=== PATIENT | male | born 1950 | race Caucasian/White ===

== ENCOUNTER → 2017-08-17 08:40 | Outpatient (CLI) | payer MEDICARE, SELFPAY ==
[2017-08-17 11:01] LABS: ALB/GLOB Ratio 0.9 RATIO (0.9-2.4); AST(SGOT) 13 U/L (15-37); Alanine Aminotransfer ALT/SGPT 19 U/L (16-61); Albumin, Serum 3.7 g/dL (3.2-5.0); Alkaline Phosphatase 81 U/L (45-117); Anion Gap 8 (5-15); BUN 25 mg/dL (7-18); BUN/Creat Ratio 20.8 RATIO (10-20); Chloride 108 mmol/L (98-107); Cholesterol 172 mg/dL (200); EST Glomerular Filtration Rate 64 mL/min (>60); Est Glom Filt Rate - Afr Amer 77 mL/min (>60); Globulin 4.1 g/dL (2.2-4.2); Glucose 146 mg/dL (74-106); High Density Lipoprotein 47 mg/dL; Potassium 4.7 mmol/L (3.5-5.1); Protein, Total 7.8 g/dL (6.4-8.2); Sodium Level 139 mmol/L (136-145); Triglycerides 164 mg/dL; Very Low Density Lipoprotein 33 mg/dL (5-40)
== END ==
PROVIDERS: Family Provider Family Medicine; PCP Family Medicine; Visit Provider Family Medicine
DX: E11.9 Type 2 diabetes mellitus without complications (principal)
CPT/HCPCS: 36415; 80053; 80061

== ENCOUNTER → 2018-02-15 09:21 | Outpatient (CLI) | payer MEDICARE, SELFPAY ==
[2018-02-15 10:51] LABS: ALB/GLOB Ratio 0.9 RATIO (0.9-2.4); AST(SGOT) 19 U/L (15-37); Alanine Aminotransfer ALT/SGPT 22 U/L (16-61); Albumin, Serum 3.4 g/dL (3.2-5.0); Alkaline Phosphatase 77 U/L (45-117); Anion Gap 8 (5-15); BUN 20 mg/dL (7-18); BUN/Creat Ratio 16.9 RATIO (10-20); Calcium,Total 8.6 mg/dL (8.5-10.1); Chloride 107 mmol/L (98-107); Cholesterol 164 mg/dL (200); Creatinine, Serum 1.18 mg/dL (0.70-1.30); EST Glomerular Filtration Rate 65 mL/min (>60); Est Glom Filt Rate - Afr Amer 79 mL/min (>60); Globulin 3.9 g/dL (2.2-4.2); Glucose 154 mg/dL (74-106); High Density Lipoprotein 46 mg/dL; Potassium 4.2 mmol/L (3.5-5.1); Protein, Total 7.3 g/dL (6.4-8.2); Sodium Level 138 mmol/L (136-145); Triglycerides 184 mg/dL; Very Low Density Lipoprotein 37 mg/dL (5-40)
== END ==
PROVIDERS: Family Provider Family Medicine; PCP Family Medicine; Visit Provider Family Medicine
DX: E11.9 Type 2 diabetes mellitus without complications (principal)
CPT/HCPCS: 36415; 80053; 80061; 84403; 84443

== ENCOUNTER → 2018-06-05 12:05 | Outpatient (CLI) | payer MEDICARE, SELFPAY ==
--- NOTE | 2018-06-05 12:09 | RAD_ITS ---
STUDY: X-RAY - PARANASAL SINUSES REASON FOR EXAM: Male, 68 years old. Headache TECHNIQUE: 3 view(s) of the paranasal sinuses were obtained. COMPARISON: None. FINDINGS: Normal visualized frontal, maxillary, ethmoidal and sphenoid sinuses. Normal visualized facial bones. The soft tissue structures are unremarkable. RAD/Sinuses min 3 Views IMPRESSION: Normal x-rays of the paranasal sinuses. Electronically Signed: Stas Licea MD at 7:41 EST Tel , Service support ,
== END ==
PROVIDERS: Family Provider Family Medicine; PCP Family Medicine; Referring Provider Family Medicine; Visit Provider Family Medicine
DX: R51 Headache (principal)
CPT/HCPCS: 70220

== ENCOUNTER → 2018-08-11 08:52 | Outpatient (CLI) | payer MEDICARE, SELFPAY ==
[2018-08-11 10:46] LABS: ALB/GLOB Ratio 0.9 RATIO (0.9-2.4); AST(SGOT) 20 U/L (15-37); Alanine Aminotransfer ALT/SGPT 19 U/L (16-61); Albumin, Serum 3.5 g/dL (3.2-5.0); Alkaline Phosphatase 110 U/L (45-117); Anion Gap 8 (5-15); BUN 29 mg/dL (7-18); BUN/Creat Ratio 23.6 RATIO (10-20); Chloride 112 mmol/L (98-107); Cholesterol 168 mg/dL (200); Creatinine, Serum 1.23 mg/dL (0.70-1.30); EST Glomerular Filtration Rate 62 mL/min (>60); Est Glom Filt Rate - Afr Amer 75 mL/min (>60); Globulin 4.1 g/dL (2.2-4.2); Glucose 189 mg/dL (74-106); High Density Lipoprotein 45 mg/dL; PSA,Total - Annual Screen 1.76 ng/mL (0.00-4.00); Potassium 5.1 mmol/L (3.5-5.1); Protein, Total 7.6 g/dL (6.4-8.2); Sodium Level 138 mmol/L (136-145); Thyroid Stim Hormone (TSH) 2.35 uIU/mL (0.358-3.74); Triglycerides 184 mg/dL; Very Low Density Lipoprotein 37 mg/dL (5-40)
== END ==
PROVIDERS: Family Provider Family Medicine; PCP Family Medicine; Referring Provider Family Medicine; Visit Provider Family Medicine
DX: E11.9 Type 2 diabetes mellitus without complications (principal); Z12.5 Encounter for screening for malignant neoplasm of prostate
CPT/HCPCS: 36415; 80053; 80061; 84153; 84403; 84443; G0103

== ENCOUNTER → 2019-09-12 08:39 | Outpatient (CLI) | payer MEDICARE, SELFPAY ==
[2019-09-12 10:45] LABS: ALB/GLOB Ratio 0.9 RATIO (0.9-2.4); AST(SGOT) 12 U/L (15-37); Alanine Aminotransfer ALT/SGPT 27 U/L (16-61); Albumin, Serum 3.5 g/dL (3.2-5.0); Alkaline Phosphatase 85 U/L (45-117); Anion Gap 7 (5-15); BUN 30 mg/dL (7-18); BUN/Creat Ratio 25.2 RATIO (10-20); Calcium,Total 9.3 mg/dL (8.5-10.1); Chloride 106 mmol/L (98-107); Cholesterol 182 mg/dL (200); Creatinine, Serum 1.19 mg/dL (0.70-1.30); EST Glomerular Filtration Rate 64 mL/min (>60); Est Glom Filt Rate - Afr Amer 78 mL/min (>60); Glucose 95 mg/dL (74-106); High Density Lipoprotein 63 mg/dL; PSA,Total - Annual Screen 1.57 ng/mL (0.00-4.00); Potassium 3.8 mmol/L (3.5-5.1); Protein, Total 7.5 g/dL (6.4-8.2); Sodium Level 138 mmol/L (136-145); Thyroid Stim Hormone (TSH) 1.84 uIU/mL (0.358-3.74); Triglycerides 194 mg/dL; Uric Acid 6.5 mg/dL (3.5-7.2); Very Low Density Lipoprotein 39 mg/dL (5-40)
== END ==
PROVIDERS: PCP Family Medicine; Referring Provider Family Medicine; Visit Provider Family Medicine
DX: E11.9 Type 2 diabetes mellitus without complications (principal); M10.9 Gout, unspecified; Z12.5 Encounter for screening for malignant neoplasm of prostate
CPT/HCPCS: 36415; 80053; 80061; 84153; 84403; 84443; 84550; G0103

== ENCOUNTER → 2020-03-09 09:21 | Outpatient (CLI) | payer MEDICARE, SELFPAY ==
[2020-03-09 13:16] LABS: ALB/GLOB Ratio 0.8 RATIO (0.9-2.4); AST(SGOT) 17 U/L (15-37); Alanine Aminotransfer ALT/SGPT 24 U/L (16-61); Albumin, Serum 3.4 g/dL (3.2-5.0); Alkaline Phosphatase 85 U/L (45-117); Anion Gap 7 (5-15); BUN 22 mg/dL (7-18); BUN/Creat Ratio 18.2 RATIO (10-20); Chloride 109 mmol/L (98-107); Creatinine, Serum 1.21 mg/dL (0.70-1.30); EST Glomerular Filtration Rate 63 mL/min (>60); Est Glom Filt Rate - Afr Amer 76 mL/min (>60); Glucose 116 mg/dL (74-106); Potassium 4.5 mmol/L (3.5-5.1); Protein, Total 7.4 g/dL (6.4-8.2); Sodium Level 140 mmol/L (136-145)
== END ==
PROVIDERS: PCP Family Medicine; Visit Provider Family Medicine
DX: E11.9 Type 2 diabetes mellitus without complications (principal)
CPT/HCPCS: 36415; 80053

== ENCOUNTER → 2020-10-28 09:08 | Outpatient (CLI) | payer MEDICARE, SELFPAY ==
--- NOTE | 2020-10-28 09:10 | RAD_ITS ---
STUDY: X-RAY - LUMBAR SPINE REASON FOR EXAM: Male, 70 years old. BACK PAIN TECHNIQUE: 5 view(s) of the lumbar spine were obtained including oblique views. COMPARISON: None FINDINGS: Normal lumbar lordosis. There is no substantial scoliosis. There is a normal alignment of the vertebrae. There is multilevel endplate spondylosis of the lumbar vertebrae. There is multi-level degenerative disc disease with multi-level disc space narrowing. Facet joint osteoarthritis and hypertrophy. Possible spinal stenosis at the L5-S1 level. There is atherosclerotic calcification of the abdominal aorta without a demonstrated aneurysm. RAD/L/S Spine Min 4 Views IMPRESSION: Degenerative changes of the spine, as detailed above. Facet joint osteoarthritis and hypertrophy with the findings suggestive of spinal stenosis at the L5-S1 level. Electronically Signed: Sohan Arteaga MD at 13:38 EDT , Service support ,
[2020-10-28 10:55] LABS: Vitamin B12 433 pg/mL (211-911)
[2020-10-28 11:05] LABS: ALB/GLOB Ratio 1.1 RATIO (0.9-2.4); AST(SGOT) 17 U/L (15-37); Alanine Aminotransfer ALT/SGPT 23 U/L (16-61); Albumin, Serum 3.9 g/dL (3.2-5.0); Alkaline Phosphatase 93 U/L (45-117); Anion Gap 9 (5-15); BUN 19 mg/dL (7-18); BUN/Creat Ratio 14.4 RATIO (10-20); Chloride 107 mmol/L (98-107); Cholesterol 162 mg/dL (200); Creatinine, Serum 1.32 mg/dL (0.70-1.30); EST Glomerular Filtration Rate 57 mL/min (>60); Est Glom Filt Rate - Afr Amer 69 mL/min (>60); Globulin 3.7 g/dL (2.2-4.2); Glucose 90 mg/dL (74-106); High Density Lipoprotein 50 mg/dL; Potassium 4.7 mmol/L (3.5-5.1); Protein, Total 7.6 g/dL (6.4-8.2); Sodium Level 139 mmol/L (136-145); Thyroid Stim Hormone (TSH) 2.42 uIU/mL (0.358-3.74); Triglycerides 178 mg/dL; Very Low Density Lipoprotein 36 mg/dL (5-40)
== END ==
PROVIDERS: PCP Family Medicine; Referring Provider Family Medicine; Visit Provider Family Medicine
DX: M54.5 Low back pain (principal); E11.9 Type 2 diabetes mellitus without complications
CPT/HCPCS: 36415; 72110; 80053; 80061; 82607; 84443

== ENCOUNTER 2020-12-02 08:30 | Outpatient (RCR) | payer MEDICARE, SELFPAY ==
--- NOTE | 2020-11-05 18:22 | HP.PTEVAL_ITS ---
Patient's Visit Information MILKA FARR is a 70 year old M referred to Physical Therapy by Dr. Farhat An MD with a diagnosis of SPINAL STENOSIS. Date of Evaluation: 11/05/20 Physical Therapist: Nehemias Kaur PT, Cert MDT, OCS - Visit Plan Frequency: 2x /Week Duration: 4 Weeks Plan: PT INTERVETIONS LUMBAR FLEXION ,DLS ,POSTURAL EX'S AND MODALTIES NEED - Subjective This 70 y/o male presents to physical therapy with spinal stenosis. Patient has had LBP for ~year. Symptoms initially would be intermittent . Pain located right side occasionally right knee. Seen DR X-rays showed spinal stenosis . Patient seen chiropractor which didn't help. No meds. Aggravating standing ,walking < 5mins .Alleviating sitting and rest. Denies paresthesia/ tingling. Bowel/bladder-. Coughing/sneezing-.Patient sleeping okay at night . No abnormal night pain.No h/o of trauma. Patient symptoms affects QOL and ADL'S. 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 SOCAIL: - Pain Right Back Pain Intensity (Out of 10): 6 Pain Intensity Range: 10 - Objective POSTURE: mild forward posture,, right leg shorter < 1/4 uses small lift. GAIT: reciprocal pattern mild forward posture slow alesha. SYYMTRIES : right leg slightly shorter. PALPATION: unremarkable. NEURO: denies paresthesia/tingling ,reflexes L3-4,L4-5,L5-S1 1/3. MMT: quads/hams 4/5 ,hip flexion 4-5/,ankle 4/5. FLEXABLITY: hams mild tight - Special Tests L/S Slump test left side: Negative L/S Slump test right side: Negative L/S Left Straight Leg Raise: Negative L/S Right Straight Leg Raise: Negative Lumbar Standing: Flexion - Mechanical Response: No effect Lumbar Standing: Flexion - Symptoms During Testing: Produces Lumbar Standing: Flexion - Symptoms After Testing: No effect Lumbar Standing: Extension - Mechanical Response: No effect Lumbar Standing: Extension - Symptoms During Testing: Increases Lumbar Standing: Extension - Symptoms After Testing: No worse Lumbar Standing: Right Side Glides - Mechanical Response: No effect Lumbar Standing: Right Side [place] - Symptoms During Testing: No effect Lumbar Standing: Left Side [place] - Mechanical Response: No effect Lumbar Standing: Left Side [place] - Symptoms During Testing: No effect Lumbar Standing: Left Side [place] - Symptoms After Testing: No effect Lumbar Lying: Flexion - Mechanical Response: No effect Lumbar Lying: Flexion - Symptoms During Testing: No effect Lumbar Lying: Flexion - Symptoms After Testing: No effect Lumbar Lying: Extension - Mechanical Response: No effect Lumbar Lying: Extension - Symptoms During Testing: Increases Lumbar Lying: Extension - Symptoms After Testing: No worse - Goals Goal 1:: I with HEP Goal Time Frame: 4-6 Weeks Goal 2:: Improve posture/body mchanics for ADL'S Goal Time Frame: 4-6 Weeks Goal 3:: Patient to reduce RIGHT LBP by 50% or > to improve function with walking/standing. Goal Time Frame: 4-6 Weeks Goal 4:: Patient to improve lumbar ROM FOR function of recovery . Goal Time Frame: 4-6 Weeks Goal 5:: Patient to improve lumbar BACK score by 5 points or > to improve function Goal Time Frame: 4-6 Weeks - Rehabilitation Potential Physical Therapy Diagnosis: This patient has right lumbar pain worse with standing/walking < less than 5 mins ,better with sitting affects ADLS' and housework tasks /farming thus benifit from skilled PT Rehabilitation Potential: Good - Anticipated Interventions Patient/Client Instruction: Educate patient on: Condition, Plan of Care For the Purpose of:: To decrease pain, To decrease swelling/inflammation, To improve muscle performance and motor function, To improve ability to perform ADL 's, To increase tolerance to activity/condition/position, To improve performance and independence with ADL's, To improve ability of physical actions for home/community/work/leisure, To improve health of tissue, To decrease soft tissue restriction, To increase flexibility/ROM, To reduce risk of recurrence, To improve ability to perform tasks related to life management Therapeutic Exercise to Include: Strength training, Body mechanics, Postural training, Flexibilty training, Dynamic Lumbar Stabilization Comment: BLE For the Purpose of:: To decrease pain, To increase ROM, To improve muscle performance and motor function, To improve ability to perform ADL's, To increase tolerance to activity/condition/position, To improve ability of physical actions for home/community/work/leisure, To improve health of tissue, To decrease soft tissue restriction, To increase flexibility/ROM, To reduce risk of recurrence, To improve ability to perform tasks related to life management TENS: Yes IF ES: Yes Other electric stimulation: Yes Cryotherapy (ice pack, ice massage): Yes Ultrasound (thermal/non thermal): Yes For the Purpose of:: To decrease pain, To decrease swelling/inflammation, To improve nutrient delivery to tissue, To increase oxygenation perfusion, To improve health of tissue, To decrease soft tissue restriction Thank you for the opportunity to evaluate your patient. For Medicare and Medicare HMO plans, please review the plan of care and approve it. It will need to be FAXED BACK to us at [phone] for Medicare purposes. For Medicare only, by signing this I certify the plan of care. Please let me know if there are questions or concerns regarding this plan of care. Physician Signature: Date:
--- NOTE | 2020-12-02 08:44 | HP.PTDCSUM ---
It has been my pleasure to treat MILKA FARR referred by Dr. Farhat An MD, with the diagnosis of SPINAL STENOSIS for a total of 9 visit(s). Discharge Date: 12/02/20 Please see the following information for a summary of their discharge status. Subjective: Doing well ..ready for d/c Right Back Pain Intensity (Out of 10): 0 % Improvement: 100 Objective/Function: POSTURE: mild forward posture. GAIT: reciprocal pattern. PALPATION: unremarkable. MMT: quads/hams 4/5,ankle 5/5. LUMBAR ROM: FLEXION MIN LOSS ,EXTENSION MIN/MOD LOSS Goal 1:: I with HEP Goal Progress: Goal Met Goal 2:: Improve posture/body mchanics for ADL'S Goal Progress: Goal Met Goal 3:: Patient to reduce RIGHT LBP by 50% or > to improve function with walking/standing. Goal Progress: Goal Met Goal 4:: Patient to improve lumbar ROM FOR function of recovery . Goal Progress: Goal Met Goal 5:: Patient to improve lumbar BACK score by 5 points or > to improve function Goal Progress: Goal Met Plan: d/c to [facility] If there are questions or concerns regarding this patient's physical therapy, please feel free to call me at [phone]. Thank you for the referral of this patient. Sincerely, Nehemias Kaur PT, Cert MDT, OCS Balance/Gait/Functional tests - Balance/Special Test Scores Oswestry Low Back Score: 0
== END 2020-12-02 19:00 | disposition home or self-care (01) ==
LOC: PT 08:30
PROVIDERS: PCP Family Medicine; Referring Provider Family Medicine; Visit Provider Family Medicine
DX: M48.00 Spinal stenosis, site unspecified (principal)
CPT/HCPCS: 97110; 97162

== ENCOUNTER 2021-04-29 10:41 | Outpatient (CLI) | payer MEDICARE, SELFPAY ==
[2021-04-29 12:19] LABS: Anion Gap 9 (5-15); BUN 21 mg/dL (7-18); BUN/Creat Ratio 18.8 RATIO (10-20); Calcium,Total 8.6 mg/dL (8.5-10.1); Chloride 110 mmol/L (98-107); Cholesterol 142 mg/dL (200); Creatinine, Serum 1.12 mg/dL (0.70-1.30); EST Glomerular Filtration Rate 69 mL/min (>60); Est Glom Filt Rate - Afr Amer 83 mL/min (>60); Glucose 62 mg/dL (74-106); High Density Lipoprotein 47 mg/dL; PSA,Total - Annual Screen 2.37 ng/mL (0.00-4.00); Potassium 4.5 mmol/L (3.5-5.1); Sodium Level 142 mmol/L (136-145); Triglycerides 171 mg/dL; Very Low Density Lipoprotein 34 mg/dL (5-40)
== END 2021-04-29 23:59 | disposition short-term general hospital (02) ==
LOC: MFPLAB 10:43
PROVIDERS: PCP Family Medicine; Referring Provider Family Medicine; Visit Provider Family Medicine
DX: E11.9 Type 2 diabetes mellitus without complications (principal); Z12.5 Encounter for screening for malignant neoplasm of prostate
CPT/HCPCS: 36415; 80048; 80061; 84153; G0103

== ENCOUNTER → 2021-10-26 | Outpatient (CLI) | payer MEDICARE, SELFPAY ==
[2021-10-26 10:39] LABS: ALB/GLOB Ratio 0.9 RATIO (0.9-2.4); AST(SGOT) 20 U/L (15-37); Alanine Aminotransfer ALT/SGPT 21 U/L (16-61); Albumin, Serum 3.6 g/dL (3.2-5.0); Alkaline Phosphatase 82 U/L (45-117); Anion Gap 6 (5-15); BUN 25 mg/dL (7-18); BUN/Creat Ratio 18.7 RATIO (10-20); Calcium,Total 9.2 mg/dL (8.5-10.1); Chloride 111 mmol/L (98-107); Cholesterol 144 mg/dL (200); Creatinine, Serum 1.34 mg/dL (0.70-1.30); EST Glomerular Filtration Rate 56 mL/min (>60); Est Glom Filt Rate - Afr Amer 67 mL/min (>60); Globulin 3.8 g/dL (2.2-4.2); Glucose 70 mg/dL (74-106); High Density Lipoprotein 46 mg/dL; Potassium 5.1 mmol/L (3.5-5.1); Protein, Total 7.4 g/dL (6.4-8.2); Sodium Level 139 mmol/L (136-145); Triglycerides 97 mg/dL; Very Low Density Lipoprotein 19 mg/dL (5-40); Vitamin B12 404 pg/mL (211-911)
[2021-10-26 11:38] LABS: Thyroid Stim Hormone (TSH) 2.36 uIU/mL (0.358-3.74)
== END | disposition home or self-care (01) ==
LOC: MFPLAB 09:31
PROVIDERS: PCP Family Medicine; Visit Provider Family Medicine
DX: E11.9 Type 2 diabetes mellitus without complications (principal)
CPT/HCPCS: 36415; 80053; 80061; 82607; 84443

== ENCOUNTER → 2022-04-27 | Outpatient (CLI) | payer MEDICARE, SELFPAY ==
[2022-04-27 10:27] LABS: AST(SGOT) 15 U/L (15-37); Alanine Aminotransfer ALT/SGPT 22 U/L (16-61); Albumin, Serum 3.5 g/dL (3.2-5.0); Alkaline Phosphatase 84 U/L (45-117); Anion Gap 6 (5-15); BUN 23 mg/dL (7-18); Calcium,Total 9.6 mg/dL (8.5-10.1); Chloride 109 mmol/L (98-107); Cholesterol 176 mg/dL (200); Creatinine, Serum 1.21 mg/dL (0.70-1.30); EST Glomerular Filtration Rate 63 mL/min (>60); Est Glom Filt Rate - Afr Amer 76 mL/min (>60); Globulin 3.6 g/dL (2.2-4.2); Glucose 110 mg/dL (74-106); High Density Lipoprotein 51 mg/dL; Potassium 4.5 mmol/L (3.5-5.1); Protein, Total 7.1 g/dL (6.4-8.2); Sodium Level 139 mmol/L (136-145); Triglycerides 134 mg/dL; Very Low Density Lipoprotein 27 mg/dL (5-40)
== END | disposition home or self-care (01) ==
LOC: MFPLAB 08:32
PROVIDERS: PCP Family Medicine; Visit Provider Family Medicine
DX: E11.9 Type 2 diabetes mellitus without complications (principal)
CPT/HCPCS: 36415; 80053; 80061

== ENCOUNTER → 2022-11-09 | Outpatient (CLI) | payer MEDICARE, SELFPAY ==
[2022-11-09 12:30] LABS: Hematocrit 44.9 % (40-54); Hemoglobin 14.8 g/dL (13.0-16.5); Mean Corpuscular Hgb 29.9 pg (27.0-32.0); Mean Corpuscular Volume 90.7 fL (80-94); Mean Platelet Vol. 11.5 fl (6.2-12.0); Platelet Count 198 K/mm3 (150-450); RBC Distribution Width CV 13.1 % (11.6-14.6); RBC Distribution Width SD 42.4 fl (35.1-43.9); Red Blood Count 4.95 M/mm3 (4.6-6.2); White Blood Count 6.6 K/mm3 (4.4-11.0)
[2022-11-09 13:00] LABS: ALB/GLOB Ratio 0.9 RATIO (0.9-2.4); AST(SGOT) 19 U/L (15-37); Alanine Aminotransfer ALT/SGPT 25 U/L (16-61); Albumin, Serum 3.5 g/dL (3.2-5.0); Alkaline Phosphatase 105 U/L (45-117); Anion Gap 10 (5-15); BUN 32 mg/dL (7-18); BUN/Creat Ratio 19.6 RATIO (10-20); Calcium,Total 9.2 mg/dL (8.5-10.1); Chloride 108 mmol/L (98-107); Cholesterol 142 mg/dL (200); Creatinine, Serum 1.63 mg/dL (0.70-1.30); EST Glomerular Filtration Rate 44 mL/min (>60); Est Glom Filt Rate - Afr Amer 54 mL/min (>60); Glucose 108 mg/dL (74-106); High Density Lipoprotein 37 mg/dL; PSA,Total - Annual Screen 1.85 ng/mL (0.00-4.00); Potassium 4.7 mmol/L (3.5-5.1); Protein, Total 7.5 g/dL (6.4-8.2); Sodium Level 140 mmol/L (136-145); Triglycerides 202 mg/dL; Very Low Density Lipoprotein 40 mg/dL (5-40)
[2022-11-09 13:35] LABS: Hepatitis C Antibody Non-Reactive (Nonreactive); Vitamin B12 403 pg/mL (211-911)
== END | disposition home or self-care (01) ==
LOC: MFPLAB 09:36
PROVIDERS: PCP Family Medicine; Visit Provider Family Medicine
DX: E11.22 Type 2 diabetes mellitus with diabetic chronic kidney disease (principal); N40.0 Benign prostatic hyperplasia without lower urinary tract symptoms
CPT/HCPCS: 36415; 80053; 80061; 82607; 84153; 84403; 84443; 85027; 86803; G0103

== ENCOUNTER → 2023-02-21 | Outpatient (CLI) | payer MEDICARE, SELFPAY ==
[2023-02-21 10:52] LABS: Anion Gap 6 (5-15); BUN 32 mg/dL (7-18); BUN/Creat Ratio 21.6 RATIO (10-20); Calcium,Total 9.4 mg/dL (8.5-10.1); Chloride 108 mmol/L (98-107); Creatinine, Serum 1.48 mg/dL (0.70-1.30); EST Glomerular Filtration Rate 49 mL/min (>60); Est Glom Filt Rate - Afr Amer 60 mL/min (>60); Glucose 152 mg/dL (74-106); Potassium 4.4 mmol/L (3.5-5.1); Sodium Level 137 mmol/L (136-145)
== END | disposition home or self-care (01) ==
LOC: MFPLAB 08:26
PROVIDERS: PCP Family Medicine; Visit Provider Family Medicine
DX: E11.22 Type 2 diabetes mellitus with diabetic chronic kidney disease (principal)
CPT/HCPCS: 36415; 80048

== ENCOUNTER → 2023-08-10 | Outpatient (CLI) | payer MEDICARE, SELFPAY ==
[2023-08-10 12:52] LABS: ALB/GLOB Ratio 0.9 RATIO (0.9-2.4); AST(SGOT) 23 U/L (15-37); Alanine Aminotransfer ALT/SGPT 24 U/L (16-61); Albumin, Serum 3.7 g/dL (3.2-5.0); Alkaline Phosphatase 109 U/L (45-117); Anion Gap 5 (5-15); BUN 36 mg/dL (7-18); BUN/Creat Ratio 23.5 RATIO (10-20); Calcium,Total 9.3 mg/dL (8.5-10.1); Chloride 107 mmol/L (98-107); Cholesterol 146 mg/dL (200); Creatinine, Serum 1.53 mg/dL (0.70-1.30); EST Glomerular Filtration Rate 48 mL/min (>60); Est Glom Filt Rate - Afr Amer 58 mL/min (>60); Glucose 109 mg/dL (74-106); High Density Lipoprotein 43 mg/dL; PSA,Total - Annual Screen 2.48 ng/mL (0.00-4.00); Potassium 4.9 mmol/L (3.5-5.1); Protein, Total 7.7 g/dL (6.4-8.2); Sodium Level 135 mmol/L (136-145); Thyroid Stim Hormone (TSH) 1.11 uIU/mL (0.358-3.74); Triglycerides 136 mg/dL; Very Low Density Lipoprotein 27 mg/dL (5-40)
== END | disposition home or self-care (01) ==
LOC: MFPLAB 10:08
PROVIDERS: PCP Family Medicine; Visit Provider Family Medicine
DX: Z00.00 Encounter for general adult medical examination without abnormal findings (principal); E11.22 Type 2 diabetes mellitus with diabetic chronic kidney disease; Z12.5 Encounter for screening for malignant neoplasm of prostate
CPT/HCPCS: 36415; 80053; 80061; 84153; 84443; G0103

== ENCOUNTER → 2023-08-14 | Outpatient (CLI) | payer MEDICARE, SELFPAY ==
--- NOTE | 2023-08-14 | LES_PTH ---
PATIENT: MILKA FARR LOC: [facility]#:[id number] AGE/SX: 73/M ROOM: RE08/14/[address]: Dr. Mohan An MD : 1950 BED: DIS: 08/14/2023 SPEC #: [id number] RECD: 08/14/23 12:10 STATUS: WES BEATRIZ #: [id number] ERIC: 08/14/23 00:[address]: Mohan An DEPT: SURGICAL PATHOLOGY RECD BY: Milagros Nicole Tissues: A - Skin of face, NOS B - Skin of face, NOS Procedures: Surgery Specimen Level IV HEADER OPERATION: Lesion removal right gnosticism and right cheek PRE-OP DIAGNOSIS: Squamous cell carcinoma? TISSUE SUBMITTED: A- Right gnosticism lesion, B- Right cheek lesion MICROSCOPIC DIAGNOSIS A. Right gnosticism lesion, shave biopsy: Basal cell carcinoma with extensive ulceration and associated acute inflammation. See comment. B. Right cheek lesion, shave biopsy: Actinic keratosis with moderate atypia and veracious features. Solar elastosis. Negative for malignancy. See comment. / 08/15/2023 COMMENT A. The tumor is present at the deep margin of the specimen. MICROSCOPIC DESCRIPTION Slides are reviewed. GROSS DESCRIPTION A. Received in fixative is one container labeled with the patient's name and designated Right gnosticism. The specimen consists of a shave biopsy with lenz-white skin measuring 1.2 x 0.6 x 0.1cm. The specimen is inked, serially sectioned and submitted entirely in one cassette. B. Received in fixative is one container labeled with the patient's name and designated Right cheek. The specimen consists of a shave biopsy with lenz-white skin measuring 0.8 x 0.5 x 0.1cm. The specimen is inked, serially sectioned and submitted entirely in one cassette. / 08/14/2023 TC:0 [facility]:[id number]
== END | disposition home or self-care (01) ==
LOC: LABSPEC 12:39
PROVIDERS: PCP Family Medicine; Referring Provider Family Medicine; Visit Provider Family Medicine
DX: L98.9 Disorder of the skin and subcutaneous tissue, unspecified (principal)
CPT/HCPCS: 88305

== ENCOUNTER → 2023-11-07 | Outpatient (CLI) | payer MEDICARE, SELFPAY ==
[2023-11-07 12:29] LABS: Uric Acid 7.2 mg/dL (3.5-7.2)
== END | disposition home or self-care (01) ==
LOC: MFPLAB 10:55
PROVIDERS: PCP Family Medicine; Visit Provider Family Medicine
DX: M10.9 Gout, unspecified (principal)
CPT/HCPCS: 36415; 84550

== ENCOUNTER → 2024-02-05 | Outpatient (CLI) | payer MEDICARE, SELFPAY ==
[2024-02-05 13:41] LABS: ALB/GLOB Ratio 0.9 RATIO (0.9-2.4); AST(SGOT) 14 U/L (15-37); Alanine Aminotransfer ALT/SGPT 16 U/L (16-61); Albumin, Serum 3.6 g/dL (3.2-5.0); Alkaline Phosphatase 116 U/L (45-117); Anion Gap 9 (5-15); BUN 36 mg/dL (7-18); BUN/Creat Ratio 22.1 RATIO (10-20); Calcium,Total 9.1 mg/dL (8.5-10.1); Chloride 108 mmol/L (98-107); Cholesterol 152 mg/dL (200); Creatinine, Serum 1.63 mg/dL (0.70-1.30); EST Glomerular Filtration Rate 44 mL/min (>60); Est Glom Filt Rate - Afr Amer 53 mL/min (>60); Globulin 4.1 g/dL (2.2-4.2); Glucose 131 mg/dL (74-106); High Density Lipoprotein 47 mg/dL; Potassium 4.8 mmol/L (3.5-5.1); Protein, Total 7.7 g/dL (6.4-8.2); Sodium Level 138 mmol/L (136-145); Triglycerides 151 mg/dL; Very Low Density Lipoprotein 30 mg/dL (5-40)
== END | disposition home or self-care (01) ==
LOC: MFPLAB 10:31
PROVIDERS: PCP Family Medicine; Visit Provider Family Medicine
DX: Z12.5 Encounter for screening for malignant neoplasm of prostate (principal); E11.22 Type 2 diabetes mellitus with diabetic chronic kidney disease
CPT/HCPCS: 36415; 80053; 80061; 84443

== ENCOUNTER → 2024-02-23 | Outpatient (CLI) | payer MEDICARE, SELFPAY ==
[2024-02-23 13:28] LABS: Anion Gap 5 (5-15); BUN 38 mg/dL (7-18); BUN/Creat Ratio 25.5 RATIO (10-20); Calcium,Total 9.8 mg/dL (8.5-10.1); Chloride 110 mmol/L (98-107); Creatinine, Serum 1.49 mg/dL (0.70-1.30); EST Glomerular Filtration Rate 49 mL/min (>60); Est Glom Filt Rate - Afr Amer 59 mL/min (>60); Glucose 133 mg/dL (74-106); Potassium 4.9 mmol/L (3.5-5.1); Sodium Level 138 mmol/L (136-145)
== END | disposition home or self-care (01) ==
LOC: MTLAB 09:45
PROVIDERS: PCP Family Medicine; Referring Provider Family Medicine; Visit Provider Family Medicine
DX: E11.22 Type 2 diabetes mellitus with diabetic chronic kidney disease (principal)
CPT/HCPCS: 36415; 80048

== ENCOUNTER 2024-09-04 09:44 | Outpatient (CLI) | payer MEDICARE, SELFPAY ==
[2024-09-04 10:22] LABS: Hematocrit 45.2 % (40-54); Hemoglobin 15.2 g/dL (13.0-16.5); Mean Corp Hgb Conc 33.6 g/dL (32-36); Mean Corpuscular Hgb 30.2 pg (27.0-32.0); Mean Corpuscular Volume 89.7 fL (80-94); Platelet Count 207 K/mm3 (150-450); RBC Distribution Width CV 12.7 % (11.6-14.6); RBC Distribution Width SD 41.5 fl (35.1-43.9); Red Blood Count 5.04 M/mm3 (4.6-6.2); White Blood Count 7.9 K/mm3 (4.4-11.0)
[2024-09-04 11:05] LABS: PTHIN 59 pg/mL (11-61)
[2024-09-04 11:29] LABS: ALB/GLOB Ratio 1.3 RATIO (0.9-2.4); AST(SGOT) 22 U/L (<=37); Alanine Aminotransfer ALT/SGPT 11 U/L (<=46); Alkaline Phosphatase 104 U/L (40-129); Anion Gap 12 (5-15); BUN 32 mg/dL (4-19); BUN/Creat Ratio 23.3 RATIO (10-20); Calcium,Total 9.4 mg/dL (7.6-11.0); Carbon Dioxide 21.5 mmol/L (21.0-32.0); Chloride 107 mmol/L (98-108); Cholesterol 134 mg/dL (<=200); Creatinine, Serum 1.35 mg/dL (0.70-1.20); EST Glomerular Filtration Rate 55 (>60); Globulin 3.2 g/dL (2.2-4.2); Glucose 74 mg/dL (70-99); High Density Lipoprotein 48 mg/dL; Low Density Lipoprotein Calc. 69 mg/dL; PSA,Total - Annual Screen 1.89 ng/mL (0.02-4.00); Potassium 4.6 mmol/L (3.3-5.1); Protein, Total 7.2 g/dL (5.9-8.4); Sodium Level 141 mmol/L (133-145); Total Bilirubin 0.96 mg/dL (0.00-1.30); Triglycerides 87 mg/dL; Very Low Density Lipoprotein 17 mg/dL (5-40); Vitamin B12 326 pg/mL (180-914); Vitamin D,25 Hydroxy 29.2 ng/mL (30-100); cholesterol:hdl ratio screen 2.82
== END 2024-09-04 23:59 | disposition home or self-care (01) ==
LOC: MFPLAB 09:45
PROVIDERS: PCP Family Medicine; Referring Provider Family Medicine; Visit Provider Family Medicine
DX: E11.22 Type 2 diabetes mellitus with diabetic chronic kidney disease (principal); N18.9 Chronic kidney disease, unspecified; Z12.5 Encounter for screening for malignant neoplasm of prostate
CPT/HCPCS: 36415; 80053; 80061; 82306; 82607; 83970; 84153; 84403; 84443; 85027; G0103

== ENCOUNTER 2025-03-05 09:07 | Outpatient (CLI) | payer MEDICARE, SELFPAY ==
--- OUTSIDE RECORDS SUMMARY | 2025-03-05 10:48 | XMS RPT_ITS | CCD ---
Author Organization [facility] Care Team Providers Care Extrusion Die Coordinator Name Role Phone Nataliya ESCOBAR, Dr. Preston Primary Care Provider Nataliya ESCOBAR, Dr. Preston Attending Provider Dr. Mohan An MD Referring Provider 1( [phone] Mohan An Attending Unavailable Mohan An Referring Unavailable Mohan An Primary Care Unavailable Mohan An Attending Unavailable Mohan An Primary Care Unavailable Mohan An Attending Unavailable Mohan An Referring Unavailable Mohan An Primary Care Unavailable Mohan An Primary Care Unavailable Mohan An Attending Unavailable Problems Active Problems Problem Classification Problem Date Documented Da te Episodic/Chronic Diabetes mellitus with complications (1 source) Type 2 diabetes mellitus with diabetic chronic kidney disease; Translations: [Type 2 diabetes mellitus with diabetic chronic kidney disease] Onset: 09-20-2024 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) Gout, unspecified; Translations: [Gout, unspecified] Onset: 11-23-2023 Chronic Past or Other Problems Problem Classification Problem Date Documented Da te Episodic/Chronic Other screening for suspected conditions (not mental disorders or infectious disease) (1 source) Encounter for screening for malignant neoplasm of prostate; Translations: [Encounter for screening for malignant neoplasm of prostate] Onset: 02-28-2024 Episodic Results Test Name Value Interpretation Reference Range Facility Anion gap in Serum or Plasma Ordered By: Mohan An on 09-04-2024 Anion gap [Moles/Vol] 12 mmol/L - [facility] BUN/creatinine ratioOrdered By: Mohan An on 09-04-2024 Urea nitrogen/Creatinine [Mass ratio] 23.3 mg/mg High 10- [facility] Bilirubin, totalOrdered By: Mohan An on 09-04-2024 Bilirubin [Mass/Vol] 0.96 mg/dL 0.00-1.30 [facility] CBC-Complete Blood Cnt No Di ffon 09-04-2024 Erythrocyte distribution width (RBC) [Ratio] 12.7 % Normal 11.6-14.6 [facility] Comment on above: Order Comment: Order Date: 05/07/24 Order Info: [id number] - CBC Performed By: #### L 501.9520, L100.0500, L501.9910, L500.4050, L509.1000, L500.4100 #### [facility] [address] [place], [place], [id number] (125) Hematocrit (Bld) [Volume fraction] 45.2 % Normal 40-54 [facility] Comment on above: Order Comment: Order Date: 05/07/24 Order Info: [id number] - CBC Performed By: #### L 501.9520, L100.0500, L501.9910, L500.4050, L509.1000, L500.4100 #### [facility] [address] [place], [place], [id number] Hemoglobin (Bld) [Mass/Vol] 15.2 g/dL Normal 13.0-16.5 [facility] Comment on above: Order Comment: Order Date: 05/07/24 Order Info: [id number] - CBC Performed By: #### L 501.9520, L100.0500, L501.9910, L500.4050, L509.1000, L500.4100 #### [facility] [address] [place], [address] MCH (RBC) [Entitic mass] 30.2 pg Normal 27.0-32.0 [facility] Comment on above: Order Comment: Order Date: 05/07/24 Order Info: [id number] - CBC Performed By: #### L 501.9520, L100.0500, L501.9910, L500.4050, L509.1000, L500.4100 #### [facility] [address] [place], [address] MCHC (RBC) [Mass/Vol] 33.6 g/dL Normal 32-36 [facility] Comment on above: Order Comment: Order Date: 05/07/24 Order Info: [id number] - CBC Performed By: #### L 501.9520, L100.0500, L501.9910, L500.4050, L509.1000, L500.4100 #### [facility] [address] [place], [address] MCV (RBC) [Entitic vol] 89.7 fL Normal 80-94 [facility] Comment on above: Order Comment: Order Date: 05/07/24 Order Info: [id number] - CBC Performed By: #### L 501.9520, L100.0500, L501.9910, L500.4050, L509.1000, L500.4100 #### [facility] [address] [place], [address] Platelet mean volume (Bld) [Entitic vol] 11.0 fL Normal 6.2-12.0 [facility] Comment on above: Order Comment: Order Date: 05/07/24 Order Info: [id number] - CBC Performed By: #### L 501.9520, L100.0500, L501.9910, L500.4050, L509.1000, L500.4100 #### [facility] [address] [place], [address] Platelets (Bld) [#/Vol] 207 10*3/uL Normal 150-450 [facility] Comment on above: Order Comment: Order Date: 05/07/24 Order Info: [id number] - CBC Performed By: #### L 501.9520, L100.0500, L501.9910, L500.4050, L509.1000, L500.4100 #### [facility] [address] [place], [place], [id number] RBC (Bld) [#/Vol] 5.04 10*6/uL Normal 4.6-6.2 [facility] Comment on above: Order Comment: Order Date: 05/07/24 Order Info: [id number] - CBC Performed By: #### L 501.9520, L100.0500, L501.9910, L500.4050, L509.1000, L500.4100 #### [facility] [address] [place], [place], [id number] RDW SD 41.5 fl Normal 35.1-43.9 [facility] Comment on above: Order Comment: Order Date: 05/07/24 Order Info: [id number] - CBC Performed By: #### L 501.9520, L100.0500, L501.9910, L500.4050, L509.1000, L500.4100 #### [facility] [address] [place], [place], [address] WBC (Bld) [#/Vol] 7.9 10*3/uL Normal 4.4-11.0 [facility] Comment on above: Order Comment: Order Date: 05/07/24 Order Info: [id number] - CBC Performed By: #### L 501.9520, L100.0500, L501.9910, L500.4050, L509.1000, L500.4100 #### [facility] [address] [place], [place], [id number] Calculated very low density lipoprotein (VLDL) cholesterol measurementOrdered By: Mohan An on 09-04-2024 Calculated very low density lipoprotein (VLDL) cholesterol measurement 17 mg/dL 5-40 [facility] Carbon dioxide, total [Moles /volume] in Central venous bloodOrdered By: Mohan An on 09-04-2024 CO2 [Moles/Vol] 21.5 mmol/L 21.0-32.0 [facility] Chloride assayOrdered By: Shandra An on 09-04-2024 Chloride [Moles/Vol] 107 mmol/L 98-108 [facility] Comprehensive Metabolic Prof ilon 09-04-2024 Albumin [Mass/Vol] 4.0 g/dL Normal 3.4-4.8 [facility] Comment on above: Order Comment: Order Date: 05/07/24 Order Info: [id number] - CMP Order Info: [id number] - LIPID Order Info: [id number] - TSH Order Info: [id number] - PSA Performed By: #### L 501.9520, L100.0500, L501.9910, L500.4050, L509.1000, L500.4100 #### [facility] [address] [place], [address] Albumin/Globulin [Mass ratio] 1.3 {ratio} Normal 0.9-2.4 [facility] Comment on above: Order Comment: Order Date: 05/07/24 Order Info: [id number] - CMP Order Info: [id number] - LIPID Order Info: [id number] - TSH Order Info: [id number] - PSA Performed By: #### L 501.9520, L100.0500, L501.9910, L500.4050, L509.1000, L500.4100 #### [facility] [address] [place], [address] ALK PHOS 104 U/L Normal 40-129 [facility] Comment on above: Order Comment: Order Date: 05/07/24 Order Info: [id number] - CMP Order Info: [id number] - LIPID Order Info: [id number] - TSH Order Info: [id number] - PSA Performed By: #### L 501.9520, L100.0500, L501.9910, L500.4050, L509.1000, L500.4100 #### [facility] [address] [place], [address] ALT [Catalytic activity/Vol] 11 U/L Normal <=46 [facility] Comment on above: Order Comment: Order Date: 05/07/24 Order Info: [id number] - CMP Order Info: - LIPID Order Info: 3 - TSH Order Info: [id number] - PSA Performed By: #### L 501.9520, L100.0500, L501.9910, L500.4050, L509.1000, L500.4100 #### [facility] [address] [place], [address] AST [Catalytic activity/Vol] 22 U/L Normal <=37 [facility] Comment on above: Order Comment: Order Date: 05/07/24 Order Info: [id number] - CMP Order Info: - LIPID Order Info: [id number] - TSH Order Info: [id number]- - PSA Performed By: #### L 501.9520, L100.0500, L501.9910, L500.4050, L509.1000, L500.4100 #### [facility] [address] [place], [address] Bilirubin [Mass/Vol] 0.96 mg/dL Normal 0.00-1.30 [facility] Comment on above: Order Comment: Order Date: 05/07/24 Order Info: [id number] - CMP Order Info: - LIPID Order Info: 3 - TSH Order Info: 7-1 - PSA Performed By: #### L 501.9520, L100.0500, L501.9910, L500.4050, L509.1000, L500.4100 #### [facility] [address] [place], [address] BUN/CRE 23.3 RATIO High 10-20 [facility] Comment on above: Order Comment: Order Date: 05/07/24 Order Info: 785-1 - CMP Order Info: [id number] - LIPID Order Info: 3 - TSH Order Info: 7-1 - PSA Performed By: #### L 501.9520, L100.0500, L501.9910, L500.4050, L509.1000, L500.4100 #### [facility] [address] [place], [address] Calcium [Mass/Vol] 9.4 mg/dL Normal 7.6-11.0 [facility] Comment on above: Order Comment: Order Date: 05/07/24 Order Info: 86-1 - CMP Order Info: [id number] - LIPID Order Info: [id number] - TSH Order Info: 2856-1 - PSA Performed By: #### L 501.9520, L100.0500, L501.9910, L500.4050, L509.1000, L500.4100 #### [facility] [address] [place], [address] Chloride [Moles/Vol] 107 mmol/L Normal 98-108 [facility] Comment on above: Order Comment: Order Date: 05/07/24 Order Info: 785- - CMP Order Info: - LIPID Order Info: 3 - TSH Order Info: 1 - PSA Performed By: #### L 501.9520, L100.0500, L501.9910, L500.4050, L509.1000, L500.4100 #### [facility] [address] [place], [address] CO2 [Moles/Vol] 21.5 mmol/L Normal 21.0-32.0 [facility] Comment on above: Order Comment: Order Date: 05/07/24 Order Info: 07-1 - CMP Order Info: [id number] - LIPID Order Info: [id number] - TSH Order Info: [id number] - PSA Performed By: #### L 501.9520, L100.0500, L501.9910, L500.4050, L509.1000, L500.4100 #### [facility] [address] [place], [address] Creatinine [Mass/Vol] 1.35 mg/dL High 0.70-1.20 [facility] Comment on above: Order Comment: Order Date: 05/07/24 Order Info: 07- - CMP Order Info: [id number] - LIPID Order Info: 3 - TSH Order Info: 2856-1 - PSA Performed By: #### L 501.9520, L100.0500, L501.9910, L500.4050, L509.1000, L500.4100 #### [facility] [address] [place], [place], [address] GAP 12 Normal 5-15 [facility] Comment on above: Order Comment: Order Date: 05/07/24 Order Info: 07- - CMP Order Info: - LIPID Order Info: [id number] - TSH Order Info: 1 - PSA Performed By: #### L 501.9520, L100.0500, L501.9910, L500.4050, L509.1000, L500.4100 #### [facility] [address] [place], [place], [id number] GFR/1.73 sq M.predicted among non-blacks MDRD (S/P/Bld) [Vol rate/Area] 55 mL/min/{1.73_m2} Low >60 [facility] Comment on above: Order Comment: Order Date: 05/07/24 Order Info: [id number]- - CMP Order Info: [id number] - LIPID Order Info: [id number] - TSH Order Info: [id number] - PSA Result Comment: mL/m in/1.73m2 CKD-EPI Creatinine Equation (2020) Performed By: #### L 501.9520, L100.0500, L501.9910, L500.4050, L509.1000, L500.4100 #### [facility] [address] [place], [place], [id number] Globulin (S) [Mass/Vol] 3.2 g/dL Normal 2.2-4.2 [facility] Comment on above: Order Comment: Order Date: 05/07/24 Order Info: [id number] - CMP Order Info: - LIPID Order Info: [id number] - TSH Order Info: [id number] - PSA Performed By: #### L 501.9520, L100.0500, L501.9910, L500.4050, L509.1000, L500.4100 #### [facility] [address] [place], [address] Glucose [Mass/Vol] 74 mg/dL Normal 70-99 [facility] Comment on above: Order Comment: Order Date: 05/07/24 Order Info: [id number] - CMP Order Info: - LIPID Order Info: [id number] - TSH Order Info: [id number] - PSA Performed By: #### L 501.9520, L100.0500, L501.9910, L500.4050, L509.1000, L500.4100 #### [facility] [address] [place], [address] Potassium [Moles/Vol] 4.6 mmol/L Normal 3.3-5.1 [facility] Comment on above: Order Comment: Order Date: 05/07/24 Order Info: [id number] - CMP Order Info: - LIPID Order Info: [id number] - TSH Order Info: [id number] - PSA Performed By: #### L 501.9520, L100.0500, L501.9910, L500.4050, L509.1000, L500.4100 #### [facility] [address] [place], [address] Sodium [Moles/Vol] 141 mmol/L Normal 133-145 [facility] Comment on above: Order Comment: Order Date: 05/07/24 Order Info: [id number] - CMP Order Info: - LIPID Order Info: [id number] - TSH Order Info: [id number] - PSA Performed By: #### L 501.9520, L100.0500, L501.9910, L500.4050, L509.1000, L500.4100 #### [facility] [address] [place], [address] T PROT 7.2 g/dL Normal 5.9-8.4 [facility] Comment on above: Order Comment: Order Date: 05/07/24 Order Info: [id number] - CMP Order Info: [id number] - LIPID Order Info: 3 - TSH Order Info: [id number] - PSA Performed By: #### L 501.9520, L100.0500, L501.9910, L500.4050, L509.1000, L500.4100 #### [facility] [address] [place], [address] Urea nitrogen [Mass/Vol] 32 mg/dL High 4-19 [facility] Comment on above: Order Comment: Order Date: 05/07/24 Order Info: 0786- - CMP Order Info: [id number] - LIPID Order Info: 3 - TSH Order Info: [id number] - PSA Performed By: #### L 501.9520, L100.0500, L501.9910, L500.4050, L509.1000, L500.4100 #### [facility] [address] [place], [address] Erythrocyte distribution wid th ratioOrdered By: Mohan An on 09-04-2024 Erythrocyte distribution width (RBC) [Ratio] 12.7 % 11.6-14.6 [facility] Erythrocyte distribution wid th standard deviationOrdered By: Mohan An on 09-04-2024 Erythrocyte distribution width (RBC) [Ratio] 41.5 fl 35.1-43.9 [facility] Glomerular filtration rate ( GFR) estimation/1.73 sq m using serum, plasma, or whole bOrdered By: Mohan An on 09-04-2024 GFR/1.73 sq M.predicted among non-blacks MDRD (S/P/Bld) [Vol rate/Area] 55 mL/min/{1.73_m2} Low >60 [facility] Comment on above: mL/min/1.73m2 CKD-EP I Creatinine Equation (2020) Hematocrit Auto (Bld) [Volum e fraction]Ordered By: Mohan An on 09-04-2024 Hematocrit (Bld) [Volume fraction] 45.2 % 40-54 [facility] Hemoglobin measurementOrdere d By: Mohan An on 09-04-2024 Hemoglobin (Bld) [Mass/Vol] 15.2 g/dL 13.0-16.5 [facility] L509.3001on 09-04-2024 Testosterone [Mass/Vol] 281.00 ng/dL Low 300-720 [facility] Comment on above: Order Comment: Order Date: 05/07/24 Order Info: [id number] - CMP Order Info: [id number] - LIPID Order Info: [id number] - TSH Order Info: [id number] - PSA Performed By: #### L 506.1001, L509.3001, L503.0106 #### [facility] [address] [place], [place], [address] LDL calc ser/plasOrdered By: Mohan An on 09-04-2024 Cholesterol in LDL [Mass/Vol] 69 mg/dL [facility] Comment on above: Kwuxkvlrtr=677-199 m g/dL & Higher Tygh=396 mg/dL or greater Laboratory - Chemistry and C hemistry - challengeOrdered By: Mohan An on 09-04-2024 AST [Catalytic activity/Vol] 22 U/L <38 [facility] Testosterone [Mass/Vol] 281.00 ng/dL Low 300-720 [facility] Lipid Profileon 09-04-2024 CHOL:HDL 2.82 Normal [facility] Comment on above: Order Comment: Order Date: 05/07/24Order Info: [id number] - CMPOrder Info: [id number] - LIPIDOrder Info: [id number] - TSHOrder Info: [id number] - PSA Performed By: #### L 500.4050, L500.4100 #### [facility] [address] [place], [place], [address] Cholesterol [Mass/Vol] 134 mg/dL Normal <=200 [facility] Comment on above: Order Comment: Order Date: 05/07/24Order Info: [id number] - CMPOrder Info: [id number] - LIPIDOrder Info: 63 - TSHOrder Info: 1 - PSA Result Comment: Chol esterol level, Desirable <200 mg/dL Borderline high cholesterol 200-239 mg/dL High cholesterol >=240 mg/dL Recommendations of the NCEP Adult Treatment Panel for the following risk-cutoff thresholds for the [place] population. Performed By: #### L 500.4050, L500.4100 #### [facility] [address] [place], [address] Cholesterol in HDL [Mass/Vol] 48 mg/dL Normal [facility] Comment on above: Order Comment: Order Date: 05/07/24Order Info: 07-1 - CMPOrder Info: [id number] - LIPIDOrder Info: 3 - TSHOrder Info: [id number] - PSA Result Comment: Aminah onal Cholesterol Education Program (NCEP) guidelines: <40 mg/dL: Low HDL-cholesterol (major risk factor for CHD) >= 60 mg/dL: High HDL-cholesterol (negative risk factor for CHD) HDL-cholesterol is affected by a number of factors, e.g. smoking, exercise, hormones, sex and age. Performed By: #### L 500.4050, L500.4100 #### [facility] [address] [place], [address] Cholesterol in LDL [Mass/Vol] 69 mg/dL Normal [facility] Comment on above: Order Comment: Order Date: 05/07/24Order Info: [id number] - CMPOrder Info: [id number] - LIPIDOrder Info: 6-3 - TSHOrder Info: [id number] - PSA Result Comment: Bord ihzgil=421-458 mg/dL Higher Sdro=659 mg/dL or greater Performed By: #### L 500.4050, L500.4100 #### [facility] [address] [place], [address] Cholesterol in VLDL [Mass/Vol] 17 mg/dL Normal 5-40 [facility] Comment on above: Order Comment: Order Date: 05/07/24Order Info: [id number] - CMPOrder Info: [id number] - LIPIDOrder Info: [id number] - TSHOrder Info: [id number] - PSA Performed By: #### L 500.4050, L500.4100 #### [facility] [address] [place], [address] Triglyceride [Mass/Vol] 87 mg/dL Normal [facility] Comment on above: Order Comment: Order Date: 05/07/24Order Info: [id number] - CMPOrder Info: [id number] - LIPIDOrder Info: [id number] - TSHOrder Info: [id number] - PSA Result Comment: The drugs N-Acetylcysteine and Metamizole may falsely depress this assay. Normal range: <150 mg/dL Borderline High: 150-199 mg/dL High: 200-499 mg/dL Very High: >500 mg/dL Performed By: #### L 500.4050, L500.4100 #### [facility] [address] [place], [place], [id number] MCV (mean corpuscular volume ) determinationOrdered By: Mohan An on 09-04-2024 MCV (RBC) [Entitic vol] 89.7 fL 80-94 [facility] Mean corpuscular hemoglobin (MCH) determinationOrdered By: Mohan An on 09-04-2024 MCH (RBC) [Entitic mass] 30.2 pg 27.0-32.0 [facility] Mean corpuscular hemoglobin concentration (MCHC) determinationOrdered By: Mohan An on 09-04-2024 MCHC (RBC) [Mass/Vol] 33.6 g/dL 32-36 [facility] Mean platelet volume determi nationOrdered By: Mohan An on 09-04-2024 Platelet mean volume (Bld) [Entitic vol] 11.0 fL 6.2-12.0 [facility] PSA,Total - Annual Screenon 05-14-2025 PSA,TOT SCREEN 1.89 ng/mL Normal 0.02-4.00 [facility] Comment on above: Order Comment: Order Date: 05/07/24Order Info: [id number] - CMPOrder Info: [id number] - LIPIDOrder Info: [id number] - TSHOrder Info: [id number] - PSA Result Comment: This test was performed using the [employer] tPSA method. Measured values of a patient??sample can vary depending on the testing procedure used. PSA values determined on patient samples by different testing procedures cannot be used interchangeably. If there is a change in PSA assays while monitoring therapy, sequential testing should be performed to confirm baseline values. Performed By: #### L 500.4050, L500.4100 #### [facility] [address] [place], [address] PTHINon 09-04-2024 PTH 59 pg/mL Normal 11-61 [facility] Comment on above: Order Comment: Order Date: 05/07/24 Order Info: [id number] - PTHIN Performed By: #### L 501.9520, L100.0500, L501.9910, L500.4050, L509.1000, L500.4100 #### [facility] [address] [place], [address] Platelet countOrdered By: Shandra An on 09-04-2024 Platelets (Bld) [#/Vol] 207 10*3/uL 150-450 [facility] Potassium measurement (mass/ volume)Ordered By: Mohan An on 09-04-2024 Potassium (Unsp spec) [Mass/Vol] 4.6 mmol/L 3.3-5.1 [facility] RBC Auto (Bld) [#/Vol]Ordere d By: Mohan An on 09-04-2024 RBC (Bld) [#/Vol] 5.04 10*6/uL 4.6-6.2 [facility] Screening total cholesterol/ high density lipoprotein (HDL) cholesterol ratioOrdered By: Mohan An on 09-04-2024 Cholesterol.total/Choles terol in HDL [Mass ratio] 2.82 {ratio} [facility] Serum creatinine measurement (mass/volume)Ordered By: Mohan An on 09-04-2024 Creatinine [Mass/Vol] 1.35 mg/dL High 0.70-1.20 [facility] Serum globulin measurementOr dered By: Mohan An on 09-04-2024 Globulin (S) [Mass/Vol] 3.2 g/dL 2.2-4.2 [facility] Serum glucose measurement (m ass/volume)Ordered By: Mohan An on 09-04-2024 Glucose [Mass/Vol] 74 mg/dL 70-99 [facility] Serum or plasma alanine alejandre otransferase (ALT) measurementOrdered By: Mohan An on 09-04-2024 ALT [Catalytic activity/Vol] 11 U/L <47 [facility] Serum or plasma albumin marina urement (mass/volume)Ordered By: Mohan An on 09-04-2024 Albumin [Mass/Vol] 4.0 g/dL 3.4-4.8 [facility] Serum or plasma albumin/glob ulin mass ratioOrdered By: Mohan An on 09-04-2024 Albumin/Globulin [Mass ratio] 1.3 {ratio} 0.9-2.4 [facility] Serum or plasma alkaline tommy sphatase measurementOrdered By: Mohan An on 09-04-2024 ALP [Catalytic activity/Vol] 104 U/L 40-129 [facility] Serum or plasma calcium marina urement (mass/volume)Ordered By: Mohan An on 09-04-2024 Calcium [Mass/Vol] 9.4 mg/dL 7.6-11.0 [facility] Serum or plasma cholesterol in HDL measurement (mass/volume)Ordered By: Mohan An on 09-04-2024 Cholesterol in HDL [Mass/Vol] 48 mg/dL >40 [facility] Comment on above: National Cholesterol Education Program (NCEP) guidelines:<40 mg/dL: Low HDL-cholesterol (major risk factor for CHD)>= 60 mg/dL: High HDL-cholesterol (negative risk factor for CHD)HDL-cholesterol is affected by a number of factors, e.g. smoking, exercise, hormones, sex and age. Serum or plasma cholesterol measurement (mass/volume)Ordered By: Mohan An on 09-04-2024 Cholesterol [Mass/Vol] 134 mg/dL <201 [facility] Comment on above: Cholesterol level, D esirable <200 mg/dLBorderline high cholesterol 200-239 mg/dLHigh cholesterol >=240 mg/dLRecommendations of the NCEP Adult Treatment Panel for the following risk-cutoff thresholds for the [place] population. Serum or plasma urea nitroge n measurement (mass/volume)Ordered By: Mohan An on 09-04-2024 Urea nitrogen [Mass/Vol] 32 mg/dL High 4-19 [facility] Sodium levelOrdered By: Moshe An on 09-04-2024 Sodium [Moles/Vol] 141 mmol/L 133-145 [facility] TSH DL <= 0.005 mIU/L QnOrde red By: Mohan An on 09-04-2024 TSH Qn 1.430 uIU/mL 0.300-4.200 [facility] Thyroid Stim Hormone (TSH)on 09-04-2024 TSH 1.430 uIU/mL Normal 0.300-4.200 [facility] Comment on above: Order Comment: Order Date: 05/07/24Order Info: [id number] - CMPOrder Info: [id number] - LIPIDOrder Info: [id number] - TSHOrder Info: [id number] - PSA Performed By: #### L 500.4050, L500.4100 #### [facility] [address] [place], [place] [address]. [place], [place], [id number] Total proteinOrdered By: Zoe An on 09-04-2024 Protein [Mass/Vol] 7.2 g/dL 5.9-8.4 [facility] Triglycerides measurementOrd ered By: Mohan An on 09-04-2024 Triglyceride [Mass/Vol] 87 mg/dL <199 [facility] Comment on above: The drugs N-Acetylcy steine and Metamizole may falsely depress this assay. Normal range: <150 mg/dLBorderline High: 150-199 mg/dLHigh: 200-499 mg/dLVery High: >500 mg/dL Vitamin B12on 09-04-2024 Cobalamin (Vitamin B12) [Mass/Vol] 326 pg/mL Normal 180-914 [facility] Comment on above: Order Comment: Order Date: 05/07/24 Order Info: [id number] - CMP Order Info: [id number] - LIPID Order Info: [id number] - TSH Order Info: [id number] - PSA Performed By: #### L 506.1001, L509.3001, L503.0106 #### [facility] [address] [place], [place], [id number] Vitamin B12 ser/plasOrdered By: Mohan An on 09-04-2024 Cobalamin (Vitamin B12) [Mass/Vol] 326 pg/mL 180-914 [facility] Vitamin D,25 Hydroxyon 09-04 Vitamin D 25-OH 29.2 ng/mL Low 30-100 [facility] Comment on above: Order Comment: Order Date: 05/07/24 Order Info: [id number] - CMP Order Info: [id number] - LIPID Order Info: 6-3 - TSH Order Info: [id number] - PSA Result Comment: Dina min D Status Deficiency: <20 ng/mL (50nmol/L) Insufficiency: 20-30 ng/mL (50-75 nmol/L) Sufficiency: 30-100 ng/mL (75-250 nmol/L) Toxicity: >100 ng/mL (>250 nmol/L) Performed By: #### L 506.1001, L509.3001, L503.0106 #### [facility] [address] [place], [place], [id number] White blood cell (WBC) count Ordered By: Mohan An on 09-04-2024 WBC (Bld) [#/Vol] 7.9 10*3/uL 4.4-11.0 [facility] Basic Metabolic Profile (BMP )on 02-23-2024 BUN/CRE 25.5 RATIO High 10-20 [facility] Comment on above: Order Comment: Order Date: 02/06/24 Order Info: 06 - BMP Performed By: #### L 500.2500 #### [facility] [address] [place], [address] CA,Total 9.8 mg/dL Normal 8.5-10.1 [facility] Comment on above: Order Comment: Order Date: 02/06/24 Order Info: [id number] - BMP Performed By: #### L 500.2500 #### [facility] [address] [place], [address] Chloride [Moles/Vol] 110 mmol/L High 98-107 [facility] Comment on above: Order Comment: Order Date: 02/06/24 Order Info: 666-04 - BMP Performed By: #### L 500.2500 #### [facility] [address] [place], [address] CO2 [Moles/Vol] 23.0 mmol/L Normal 21.0-32.0 [facility] Comment on above: Order Comment: Order Date: 02/06/24 Order Info: 666-04 - BMP Performed By: #### L 500.2500 #### [facility] [address] [place], [address] Creatinine [Mass/Vol] 1.49 mg/dL High 0.70-1.30 [facility] Comment on above: Order Comment: Order Date: 02/06/24 Order Info: 0667 - BMP Result Comment: The validity of the calculated GFR GFRAA in patients over 70 years has not been determined. Clinical correlation is essential. Performed By: #### L 500.2500 #### [facility] [address] [place], [address] EST GFR - AA 59 mL/min Low >60 [facility] Comment on above: Order Comment: Order Date: 02/06/24 Order Info: 0667- - BMP Result Comment: Afri can [place] GFR Calc Performed By: #### L 500.2500 #### [facility] [address] [place] [facility] [place], [address] GAP 5 Normal 5-15 [facility] Comment on above: Order Comment: Order Date: 02/06/24 Order Info: 0667 - BMP Performed By: #### L 500.2500 #### [facility] [address] [place], [address] GFR/1.73 sq M.predicted among non-blacks MDRD (S/P/Bld) [Vol rate/Area] 49 mL/min/{1.73_m2} Low >60 [facility] Comment on above: Order Comment: Order Date: 02/06/24 Order Info: 06 - BMP Result Comment: Non- GFR Calc Performed By: #### L 500.2500 #### [facility] [address] [place], [address] Glucose [Mass/Vol] 133 mg/dL High 74-106 [facility] Comment on above: Order Comment: Order Date: 02/06/24 Order Info: 06 - BMP Result Comment: Fast ing Glucose result greater than or equal to 126 mg/dL suggests DIABETES MELLITUS per A.D.A. criteria. Performed By: #### L 500.2500 #### [facility] [address] [place], [address] Potassium [Moles/Vol] 4.9 mmol/L Normal 3.5-5.1 [facility] Comment on above: Order Comment: Order Date: 02/06/24 Order Info: 0667 - BMP Performed By: #### L 500.2500 #### [facility] [address] [place], [address] Sodium [Moles/Vol] 138 mmol/L Normal 136-145 [facility] Comment on above: Order Comment: Order Date: 02/06/24 Order Info: 0667- - BMP Performed By: #### L 500.2500 #### [facility] [address] [place], [address] Urea nitrogen [Mass/Vol] 38 mg/dL High 7-18 [facility] Comment on above: Order Comment: Order Date: 02/06/24 Order Info: [id number] - BMP Performed By: #### L 500.2500 #### [facility] [address] [place], [address] Comprehensive Metabolic Prof ilon 02-05-2024 Albumin [Mass/Vol] 3.6 g/dL Normal 3.2-5.0 [facility] Comment on above: Order Comment: Order Date: 02/05/24Order Info: [id number] - CMPOrder Info: [id number] - LIPIDOrder Info: [id number] - TSH Performed By: #### L 500.4050, L500.4100 #### [facility] [address] [place], [address] Albumin/Globulin [Mass ratio] 0.9 {ratio} Normal 0.9-2.4 [facility] Comment on above: Order Comment: Order Date: 02/05/24Order Info: [id number] - CMPOrder Info: [id number] - LIPIDOrder Info: [id number] - TSH Performed By: #### L 500.4050, L500.4100 #### [facility] [address] [place], [address] ALK P 116 U/L Normal 45-117 [facility] Comment on above: Order Comment: Order Date: 02/05/24Order Info: [id number] - CMPOrder Info: [id number] - LIPIDOrder Info: [id number] - TSH Performed By: #### L 500.4050, L500.4100 #### [facility] [address] [place], [address] ALT [Catalytic activity/Vol] 16 U/L Normal 16-61 [facility] Comment on above: Order Comment: Order Date: 02/05/24Order Info: [id number] - CMPOrder Info: [id number] - LIPIDOrder Info: [id number] - TSH Performed By: #### L 500.4050, L500.4100 #### [facility] [address] [place], [address] AST [Catalytic activity/Vol] 14 U/L Low 15-37 [facility] Comment on above: Order Comment: Order Date: 02/05/24Order Info: 86- - CMPOrder Info: [id number] - LIPIDOrder Info: [id number] - TSH Performed By: #### L 500.4050, L500.4100 #### [facility] [address] [place], [address] Bilirubin [Mass/Vol] 1.00 mg/dL Normal 0.20-1.00 [facility] Comment on above: Order Comment: Order Date: 02/05/24Order Info: [id number]- - CMPOrder Info: - LIPIDOrder Info: [id number] - TSH Result Comment: For patients on eltrombopag therapy, use of Dimension [place] TBIL is not recommended. Performed By: #### L 500.4050, L500.4100 #### [facility] [address] [place], [address] BUN/CRE 22.1 RATIO High 10-20 [facility] Comment on above: Order Comment: Order Date: 02/05/24Order Info: [id number]- - CMPOrder Info: - LIPIDOrder Info: [id number] - TSH Performed By: #### L 500.4050, L500.4100 #### [facility] [address] [place], [address] CA,Total 9.1 mg/dL Normal 8.5-10.1 [facility] Comment on above: Order Comment: Order Date: 02/05/24Order Info: 785- - CMPOrder Info: [id number] - LIPIDOrder Info: [id number]- - TSH Performed By: #### L 500.4050, L500.4100 #### [facility] [address] [place], [address] Chloride [Moles/Vol] 108 mmol/L High 98-107 [facility] Comment on above: Order Comment: Order Date: 02/05/24Order Info: 86-1 - CMPOrder Info: [id number] - LIPIDOrder Info: [id number] - TSH Performed By: #### L 500.4050, L500.4100 #### [facility] [address] [place], [address] CO2 [Moles/Vol] 21.0 mmol/L Normal 21.0-32.0 [facility] Comment on above: Order Comment: Order Date: 02/05/24Order Info: 785- - CMPOrder Info: [id number] - LIPIDOrder Info: 3 - TSH Performed By: #### L 500.4050, L500.4100 #### [facility] [address] [place], [address] Creatinine [Mass/Vol] 1.63 mg/dL High 0.70-1.30 [facility] Comment on above: Order Comment: Order Date: 02/05/24Order Info: 785- - CMPOrder Info: [id number] - LIPIDOrder Info: 3 - TSH Result Comment: The validity of the calculated GFR GFRAA in patients over 70 years has not been determined. Clinical correlation is essential. Performed By: #### L 500.4050, L500.4100 #### [facility] [address] [place], [address] EST GFR - AA 53 mL/min Low >60 [facility] Comment on above: Order Comment: Order Date: 02/05/24Order Info: [id number] - CMPOrder Info: [id number] - LIPIDOrder Info: 6-3 - TSH Result Comment: Afri can [place] GFR Calc Performed By: #### L 500.4050, L500.4100 #### [facility] [address] [place], [address] GAP 9 Normal 5-15 [facility] Comment on above: Order Comment: Order Date: 02/05/24Order Info: [id number] - CMPOrder Info: [id number] - LIPIDOrder Info: [id number] - TSH Performed By: #### L 500.4050, L500.4100 #### [facility] [address] [place], [address] GFR/1.73 sq M.predicted among non-blacks MDRD (S/P/Bld) [Vol rate/Area] 44 mL/min/{1.73_m2} Low >60 [facility] Comment on above: Order Comment: Order Date: 02/05/24Order Info: 785- - CMPOrder Info: [id number] - LIPIDOrder Info: [id number] - TSH Result Comment: Non- GFR Calc Performed By: #### L 500.4050, L500.4100 #### [facility] [address] [place], [address] Globulin (S) [Mass/Vol] 4.1 g/dL Normal 2.2-4.2 [facility] Comment on above: Order Comment: Order Date: 02/05/24Order Info: [id number]- - CMPOrder Info: [id number] - LIPIDOrder Info: [id number] - TSH Performed By: #### L 500.4050, L500.4100 #### [facility] [address] [place], [address] Glucose [Mass/Vol] 131 mg/dL High 74-106 [facility] Comment on above: Order Comment: Order Date: 02/05/24Order Info: [id number] - CMPOrder Info: [id number] - LIPIDOrder Info: [id number] - TSH Result Comment: Fast ing Glucose result greater than or equal to 126 mg/dL suggests DIABETES MELLITUS per A.D.A. criteria. Performed By: #### L 500.4050, L500.4100 #### [facility] [address] [place], [address] Potassium [Moles/Vol] 4.8 mmol/L Normal 3.5-5.1 [facility] Comment on above: Order Comment: Order Date: 02/05/24Order Info: [id number] - CMPOrder Info: [id number] - LIPIDOrder Info: [id number] - TSH Performed By: #### L 500.4050, L500.4100 #### [facility] [address] [place], [address] Sodium [Moles/Vol] 138 mmol/L Normal 136-145 [facility] Comment on above: Order Comment: Order Date: 02/05/24Order Info: [id number]- - CMPOrder Info: [id number] - LIPIDOrder Info: [id number] - TSH Performed By: #### L 500.4050, L500.4100 #### [facility] [address] [place], [address] T PROT 7.7 g/dL Normal 6.4-8.2 [facility] Comment on above: Order Comment: Order Date: 02/05/24Order Info: [id number] - CMPOrder Info: [id number] - LIPIDOrder Info: [id number] - TSH Performed By: #### L 500.4050, L500.4100 #### [facility] [address] [place], [address] Urea nitrogen [Mass/Vol] 36 mg/dL High 7-18 [facility] Comment on above: Order Comment: Order Date: 02/05/24Order Info: [id number] - CMPOrder Info: [id number] - LIPIDOrder Info: [id number] - TSH Performed By: #### L 500.4050, L500.4100 #### [facility] [address] [place], [address] Lipid Profileon 02-05-2024 Cholesterol [Mass/Vol] 152 mg/dL Normal 200 [facility] Comment on above: Order Comment: Order Date: 02/05/24Order Info: [id number]- - CMPOrder Info: [id number] - LIPIDOrder Info: [id number] - TSH Result Comment: <200 mg/dL Desirable 200-240 mg/dL Borderline >240 mg/dL High Risk Performed By: #### L 500.4050, L500.4100 #### [facility] [address] [place], [address] Cholesterol in HDL [Mass/Vol] 47 mg/dL Normal [facility] Comment on above: Order Comment: Order Date: 02/05/24Order Info: [id number] - CMPOrder Info: [id number] - LIPIDOrder Info: 3 - TSH Result Comment: The drugs N-Acetylcysteine and Metamizole may falsely depress this assay. Reference Range HDL <40 mg/dL Low HDL Cholesterol HDL >or= 60 mg/dL High HDL Cholesterol Performed By: #### L 500.4050, L500.4100 #### [facility] [address] [place], [address] Cholesterol in LDL [Mass/Vol] 75 mg/dL Normal 0-130 [facility] Comment on above: Order Comment: Order Date: 02/05/24Order Info: [id number] - CMPOrder Info: - LIPIDOrder Info: 63 - TSH Performed By: #### L 500.4050, L500.4100 #### [facility] [address] [place], [address] Cholesterol in VLDL [Mass/Vol] 30 mg/dL Normal 5-40 [facility] Comment on above: Order Comment: Order Date: 02/05/24Order Info: [id number] - CMPOrder Info: - LIPIDOrder Info: 3 - TSH Performed By: #### L 500.4050, L500.4100 #### [facility] [address] [place], [address] Triglyceride [Mass/Vol] 151 mg/dL Normal [facility] Comment on above: Order Comment: Order Date: 02/05/24Order Info: 86-1 - CMPOrder Info: [id number] - LIPIDOrder Info: [id number] - TSH Result Comment: The drugs N-Acetylcysteine and Metamizole may falsely depress this assay. Serum Triglycerides Reference Interval Normal <150 mg/dL Borderline high 150 - 199 mg/dL High 200 - 499 mg/dL Very High > or = 500 mg/dL Performed By: #### L 500.4050, L500.4100 #### [facility] [address] [place], [address] Thyroid Stim Hormone (TSH)on 02-05-2024 TSH 1.440 uIU/mL Normal 0.358-3.740 [facility] Comment on above: Order Comment: Order Date: 02/05/24Order Info: [id number] - CMPOrder Info: [id number] - LIPIDOrder Info: [id number] - TSH Performed By: #### L 500.4050, L500.4100 #### [facility] [address] [place], [address] Comprehensive Metabolic Prof ilon 11-07-2023 ALB Normal 3.2-5.0 [facility] Comment on above: Result Comment: DONE IN JULY Performed By: #### L 500.4050, L500.4100 #### [facility] [address] [place], [address] ALK P Normal 45-117 [facility] Comment on above: Result Comment: DONE IN JULY Performed By: #### L 500.4050, L500.4100 #### [facility] [address] [place], [address] ALT Normal 16-61 [facility] Comment on above: Result Comment: DONE IN JULY Performed By: #### L 500.4050, L500.4100 #### [facility] [address] [place], [address] AST Normal 15-37 [facility] Comment on above: Result Comment: DONE IN JULY Performed By: #### L 500.4050, L500.4100 #### [facility] [address] [place], [address] BUN Normal 7-18 [facility] Comment on above: Result Comment: DONE IN JULY Performed By: #### L 500.4050, L500.4100 #### [facility] [address] [place], [address] BUN/CRE Normal 10-20 [facility] Comment on above: Result Comment: DONE IN JULY Performed By: #### L 500.4050, L500.4100 #### [facility] [address] [place], [address] CA,Total Normal 8.5-10.1 [facility] Comment on above: Result Comment: DONE IN JULY Performed By: #### L 500.4050, L500.4100 #### [facility] [address] [place], [address] CL Normal 98-107 [facility] Comment on above: Result Comment: DONE IN JULY Performed By: #### L 500.4050, L500.4100 #### [facility] [address] [place], [address] CO2 Normal 21.0-32.0 [facility] Comment on above: Result Comment: DONE IN JULY Performed By: #### L 500.4050, L500.4100 #### [facility] [address] [place], [address] CREAT,SERUM Normal 0.70-1.30 [facility] Comment on above: Result Comment: DONE IN JULY Performed By: #### L 500.4050, L500.4100 #### [facility] [address] [place], [address] EST GFR Normal >60 [facility] Comment on above: Result Comment: DONE IN JULY Performed By: #### L 500.4050, L500.4100 #### [facility] [address] [place], [address] EST GFR - AA Normal >60 [facility] Comment on above: Result Comment: DONE IN JULY Performed By: #### L 500.4050, L500.4100 #### [facility] [address] [place], [address] GAP Normal 5-15 [facility] Comment on above: Result Comment: DONE IN JULY Performed By: #### L 500.4050, L500.4100 #### [facility] [address] [place], [address] GLU Normal 74-106 [facility] Comment on above: Result Comment: DONE IN JULY Performed By: #### L 500.4050, L500.4100 #### [facility] [address] [place], [address] Potassium Normal 3.5-5.1 [facility] Comment on above: Result Comment: DONE IN JULY Performed By: #### L 500.4050, L500.4100 #### [facility] [address] [place], [address] T BILI Normal 0.20-1.00 [facility] Comment on above: Result Comment: DONE IN JULY Performed By: #### L 500.4050, L500.4100 #### [facility] [address] [place], [address] T PROT Normal 6.4-8.2 [facility] Comment on above: Result Comment: DONE IN JULY Performed By: #### L 500.4050, L500.4100 #### [facility] [address] [place], [address] Comprehensive Metabolic Profil Normal 136-145 [facility] Comment on above: Result Comment: DONE IN JULY Performed By: #### L 500.4050, L500.4100 #### [facility] [address] [place], [address] Lipid Profileon 11-07-2023 HDL Normal [facility] Comment on above: Result Comment: DONE IN JULY The drugs N-Acetylcysteine and Metamizole may falsely depress this assay. Performed By: #### L 500.4050, L500.4100 #### [facility] [address] [place], [address] TRIG Normal [facility] Comment on above: Result Comment: DONE IN JULY The drugs N-Acetylcysteine and Metamizole may falsely depress this assay. Performed By: #### L 500.4050, L500.4100 #### [facility] [address] [place], [address] CHOL Normal 200 [facility] Comment on above: Result Comment: DONE IN JULY Performed By: #### L 500.4050, L500.4100 #### [facility] [address] [place], [address] LDL Normal 0-130 [facility] Comment on above: Result Comment: DONE IN JULY Performed By: #### L 500.4050, L500.4100 #### [facility] [address] [place], [address] VLDL Normal 5-40 [facility] Comment on above: Result Comment: DONE IN JULY Performed By: #### L 500.4050, L500.4100 #### [facility] [address] [place], [address] Uric Acidon 11-07-2023 URIC 7.2 mg/dL Normal 3.5-7.2 [facility] Comment on above: Order Comment: Order Date: 11/07/23 Order Info: [id number] - URIC Result Comment: The drugs N-Acetylcysteine and Metamizole may falsely depress this assay. Performed By: #### L 501.1400 #### [facility] [address] [place], [address] Basophil percentageOrdered B y: Willamverona Nataliya on 08-10-2023 Bilirubin [Mass/Vol] 1.20 mg/dL 0.20-1.00 [facility] Comment on above: For patients on eltr ombopag therapy, use of Dimension [place] TBIL is not recommended. Chloride [Moles/Vol] 107 mmol/L 98-107 [facility] Cholesterol [Mass/Vol] 146 mg/dL <200 [facility] Comment on above: <200 mg/dL Desirable 200-240 mg/dL Borderline >240 mg/dL High Risk Glucose [Mass/Vol] 109 mg/dL 74-106 [facility] Comment on above: Fasting Glucose resu lt from 100 to 125 mg/dL suggests IMPAIRED HOMEOSTASIS per A.D.A. criteria. Potassium [Moles/Vol] 4.9 mmol/L 3.5-5.1 [facility] Protein [Mass/Vol] 7.7 g/dL 6.4-8.2 [facility] Sodium [Moles/Vol] 135 mmol/L 136-145 [facility] Triglyceride [Mass/Vol] 136 mg/dL <199 [facility] Comment on above: The drugs N-Acetylcy steine and Metamizole may falsely depress this assay.Serum Triglycerides Reference Interval Normal <150 mg/dL Borderline high 150 - 199 mg/dL High 200 - 499 mg/dL Very High > or = 500 mg/dL Laboratory - Chemistry and C hemistry - challengeOrdered By: Mohan An on 08-10-2023 Albumin/Globulin [Mass ratio] 0.9 {ratio} 0.9-2.4 [facility] ALP [Catalytic activity/Vol] 109 U/L 45-117 [facility] ALT [Catalytic activity/Vol] 24 U/L 16-61 [facility] Cholesterol in HDL [Mass/Vol] 43 mg/dL >40 [facility] Comment on above: The drugs N-Acetylcy steine and Metamizole may falsely depress this assay. Reference Range HDL <40 mg/dL Low HDL Cholesterol HDL >or= 60 mg/dL High HDL Cholesterol Cholesterol in LDL [Mass/Vol] 76 mg/dL 0-130 [facility] CO2 [Moles/Vol] 23.0 mmol/L 21.0-32.0 [facility] Globulin (S) [Mass/Vol] 4.0 g/dL 2.2-4.2 [facility] Urea nitrogen/Creatinine [Mass ratio] 23.5 mg/mg 10-20 [facility] No Panel InformationOrdered By: Mohan An on 08-10-2023 Estimated GFR (MDRD) Amer 58 mL/min >60 [facility] Comment on above: GFR Calc Estimated GFR (MDRD) Non-Af Amer 48 mL/min >60 [facility] Comment on above: Non- GFR Calc Prostate Specific Antigen Screen 2.48 ng/mL 0.00-4.00 [facility] Comment on above: This test was perfor med using the TPSA assay method for [employer] chemistry system. Values obtained with differentassay methods cannot be used interchangably.When changing PSA assays in the course of monitoring apatient, additional sequential testing should be carriedout to confirm baseline values. VLDL Cholesterol 27 mg/dL 5-40 [facility] Serum or plasma calcium marina urement (mass/volume)Ordered By: Mohan An on 08-10-2023 Calcium [Mass/Vol] 9.3 mg/dL 8.5-10.1 [facility] Serum or plasma creatinine m easurement (mass/volume)Ordered By: Mohan An on 08-10-2023 Creatinine [Mass/Vol] 1.53 mg/dL 0.70-1.30 [facility] Comment on above: The validity of the calculated GFR & GFRAA in patients over 70 years has not been determined. Clinical correlation is essential. Serum or plasma thyroid stim ulating hormone (TSH) measurement (units/volume)Ordered By: Mohan An on 08-10-2023 TSH Qn 1.11 uIU/mL 0.358-3.74 [facility] Serum or plasma urea nitroge n measurement (mass/volume)Ordered By: Mohan An on 08-10-2023 Urea nitrogen [Mass/Vol] 36 mg/dL 7-18 [facility] Thin prep Papanicolaou smear with manual screeningOrdered By: Mohan An on 08-10-2023 Thin prep Papanicolaou smear with manual screening 3.7 g/dL 3.2-5.0 [facility] Thin prep Papanicolaou smear with manual screening 23 U/L 15-37 [facility] Thin prep Papanicolaou smear with manual screening 5 5-15 [facility] Basophil percentageOrdered B y: Farhat An on 02-21-2023 Chloride [Moles/Vol] 108 mmol/L 98-107 [facility] Glucose [Mass/Vol] 152 mg/dL 74-106 [facility] Comment on above: Fasting Glucose resu lt greater than or equal to 126 mg/dL suggests DIABETES MELLITUS per A.D.A. criteria. Potassium [Moles/Vol] 4.4 mmol/L 3.5-5.1 [facility] Sodium [Moles/Vol] 137 mmol/L 136-145 [facility] Laboratory - Chemistry and C hemistry - challengeOrdered By: Farhat An on 02-21-2023 CO2 [Moles/Vol] 23.0 mmol/L 21.0-32.0 [facility] Urea nitrogen/Creatinine [Mass ratio] 21.6 mg/mg 10- [facility] No Panel InformationOrdered By: Farhat An on 02-21-2023 Estimated GFR (MDRD) Amer 60 mL/min >60 [facility] Comment on above: GFR Calc Estimated GFR (MDRD) Non-Af Amer 49 mL/min >60 [facility] Comment on above: Non- GFR Calc Serum or plasma calcium marina urement (mass/volume)Ordered By: Farhat An on 02-21-2023 Calcium [Mass/Vol] 9.4 mg/dL 8.5-10.1 [facility] Serum or plasma creatinine m easurement (mass/volume)Ordered By: Farhat An on 02-21-2023 Creatinine [Mass/Vol] 1.48 mg/dL 0.70-1.30 [facility] Comment on above: The validity of the calculated GFR & GFRAA in patients over 70 years has not been determined. Clinical correlation is essential. Serum or plasma urea nitroge n measurement (mass/volume)Ordered By: Farhat An on 02-21-2023 Urea nitrogen [Mass/Vol] 32 mg/dL 7-18 [facility] Thin prep Papanicolaou smear with manual screeningOrdered By: Farhat An on 02-21-2023 Thin prep Papanicolaou smear with manual screening 6 5-15 [facility] Basophil percentageOrdered B y: Farhat An on 11-09-2022 Bilirubin [Mass/Vol] 1.10 mg/dL 0.20-1.00 [facility] Comment on above: For patients on eltr ombopag therapy, use of Dimension [place] TBIL is not recommended. Chloride [Moles/Vol] 108 mmol/L 98-107 [facility] Cholesterol [Mass/Vol] 142 mg/dL <200 [facility] Comment on above: <200 mg/dL Desirable 200-240 mg/dL Borderline >240 mg/dL High Risk Glucose [Mass/Vol] 108 mg/dL 74-106 [facility] Comment on above: Fasting Glucose resu lt from 100 to 125 mg/dL suggests IMPAIRED HOMEOSTASIS per A.D.A. criteria. Potassium [Moles/Vol] 4.7 mmol/L 3.5-5.1 [facility] Protein [Mass/Vol] 7.5 g/dL 6.4-8.2 [facility] Sodium [Moles/Vol] 140 mmol/L 136-145 [facility] Testosterone [Mass/Vol] 197.84 ng/dL [facility] Comment on above: CENTRAL 90% REFERENC E RANGES MALE AGE <50 197.44 - 669.58 ng/dL MALE AGE > or = 50 187.72 - 684.19 ng/dL FEMALE AGE <50 8.38 - 35.01 ng/dL FEMALE AGE > or = 50 <7.00 - 35.92 ng/dL Effective as of 11/17/20 Triglyceride [Mass/Vol] 202 mg/dL <199 [facility] Comment on above: The drugs N-Acetylcy steine and Metamizole may falsely depress this assay.Serum Triglycerides Reference Interval Normal <150 mg/dL Borderline high 150 - 199 mg/dL High 200 - 499 mg/dL Very High > or = 500 mg/dL WBC (Bld) [#/Vol] 6.6 10*3/uL 4.4-11.0 [facility] Blood erythrocytes count (nu mber/volume)Ordered By: Farhat An on 11-09-2022 RBC (Bld) [#/Vol] 4.95 10*6/uL 4.6-6.2 [facility] Blood hemoglobin measurement (mass/volume)Ordered By: Farhat An on 11-09-2022 Hemoglobin (Bld) [Mass/Vol] 14.8 g/dL 13.0-16.5 [facility] Blood platelet mean volumeOr dered By: Farhat An on 11-09-2022 Platelet mean volume (Bld) [Entitic vol] 11.5 fL 6.2-12.0 [facility] Determination of erythrocyte mean corpuscular volume (MCV)Ordered By: Farhat An on 11-09-2022 MCV (RBC) [Entitic vol] 90.7 fL 80-94 [facility] Hematocrit Auto (Bld) [Volum e fraction]Ordered By: Farhat An on 11-09-2022 Hematocrit (Bld) [Volume fraction] 44.9 % 40-54 [facility] Laboratory - Chemistry and C hemistry - challengeOrdered By: Farhat Ranney on 11-09-2022 ALP [Catalytic activity/Vol] 105 U/L 45-117 [facility] ALT [Catalytic activity/Vol] 25 U/L 16-61 [facility] CO2 [Moles/Vol] 22.0 mmol/L 21.0-32.0 [facility] Cobalamin (Vitamin B12) [Mass/Vol] 403 pg/mL 211-911 [facility] Globulin (S) [Mass/Vol] 4.0 g/dL 2.2-4.2 [facility] Urea nitrogen/Creatinine [Mass ratio] 19.6 mg/mg 10-20 [facility] Laboratory - Hematology and Cell countsOrdered By: Farhat An on 11-09-2022 Erythrocyte distribution width (RBC) [Entitic vol] 42.4 fL 35.1-43.9 [facility] Erythrocyte distribution width (RBC) [Ratio] 13.1 % 11.6-14.6 [facility] MCH (RBC) [Entitic mass] 29.9 pg 27.0-[facility].0 [facility] [Mass/Vol]Or dered By: Farhat An on 11-09-2022 MCHC (RBC) [Mass/Vol] 33.0 g/dL 32-36 [facility] No Panel InformationOrdered By: Farhat An on 11-09-2022 Estimated GFR (MDRD) Amer 54 mL/min >60 [facility] Comment on above: GFR Calc Estimated GFR (MDRD) Non-Af Amer 44 mL/min >60 [facility] Comment on above: Non- GFR Calc Hepatitis C Antibody Non-Reactive Nonreactive [facility] Comment on above: Non Reactive: < 0.8 Equivocal: >/= 0.8 to < 1.0 Reactive: >/= 1.0The CDC recommends that a reactive/equivocal HCV antibody result be followed up by the HCV Nucleic Acid Amplificationtest (820721) Prostate Specific Antigen Screen 1.85 ng/mL 0.00-4.00 [facility] Comment on above: This test was perfor med using the TPSA assay method for the[employer] chemistry system. Values obtained with differentassay methods cannot be used interchangably.When changing PSA assays in the course of monitoring apatient, additional sequential testing should be carriedout to confirm baseline values. Thyroid Stimulating Hormone (TSH) 1.50 uIU/mL 0.358-3.74 [facility] Platelets bldOrdered By: Zoe An on 11-09-2022 Platelets (Bld) [#/Vol] 198 10*3/uL 150-450 [facility] Serum or plasma albumin marina urement (mass/volume)Ordered By: Farhat An on 11-09-2022 Albumin [Mass/Vol] 3.5 g/dL 3.2-5.0 [facility] Serum or plasma albumin/glob ulin mass ratioOrdered By: Farhat An on 11-09-2022 Albumin/Globulin [Mass ratio] 0.9 {ratio} 0.9-2.4 [facility] Serum or plasma calcium marina urement (mass/volume)Ordered By: Farhat An on 11-09-2022 Calcium [Mass/Vol] 9.2 mg/dL 8.5-10.1 [facility] Serum or plasma cholesterol in HDL measurement (mass/volume)Ordered By: Farhat An on 11-09-2022 Cholesterol in HDL [Mass/Vol] 37 mg/dL >40 [facility] Comment on above: The drugs N-Acetylcy steine and Metamizole may falsely depress this assay. Reference Range HDL <40 mg/dL Low HDL Cholesterol HDL >or= 60 mg/dL High HDL Cholesterol Serum or plasma cholesterol in VLDL measurement (mass/volume)Ordered By: Farhat An on 11-09-2022 Cholesterol in VLDL [Mass/Vol] 40 mg/dL 5-40 [facility] Serum or plasma creatinine m easurement (mass/volume)Ordered By: Farhat An on 11-09-2022 Creatinine [Mass/Vol] 1.63 mg/dL 0.70-1.30 [facility] Comment on above: The validity of the calculated GFR & GFRAA in patients over 70 years has not been determined. Clinical correlation is essential. Serum or plasma low density lipoprotein (LDL) cholesterol measurement (mass/volume)Ordered By: Farhat An on 11-09-2022 Cholesterol in LDL [Mass/Vol] 65 mg/dL 0-130 [facility] Serum or plasma urea nitroge n measurement (mass/volume)Ordered By: Farhat An on 11-09-2022 Urea nitrogen [Mass/Vol] 32 mg/dL 7-18 [facility] Thin prep Papanicolaou smear with manual screeningOrdered By: Farhat An on 11-09-2022 Thin prep Papanicolaou smear with manual screening 19 U/L 15-37 [facility] Thin prep Papanicolaou smear with manual screening 10 5-15 [facility] Basophil percentageOrdered B y: Dr. An on 04-27-2022 Bilirubin [Mass/Vol] 0.70 mg/dL 0.20-1.00 [facility] Comment on above: For patients on eltr ombopag therapy, use of Dimension [place] TBIL is not recommended. Chloride [Moles/Vol] 109 mmol/L 98-107 [facility] Cholesterol [Mass/Vol] 176 mg/dL <200 [facility] Comment on above: <200 mg/dL Desirable 200-240 mg/dL Borderline >240 mg/dL High Risk Glucose [Mass/Vol] 110 mg/dL 74-106 [facility] Comment on above: Fasting Glucose resu lt from 100 to 125 mg/dL suggests IMPAIRED HOMEOSTASIS per A.D.A. criteria. Potassium [Moles/Vol] 4.5 mmol/L 3.5-5.1 [facility] Protein [Mass/Vol] 7.1 g/dL 6.4-8.2 [facility] Sodium [Moles/Vol] 139 mmol/L 136-145 [facility] Triglyceride [Mass/Vol] 134 mg/dL <199 [facility] Comment on above: The drugs N-Acetylcy steine and Metamizole may falsely depress this assay.Serum Triglycerides Reference Interval Normal <150 mg/dL Borderline high 150 - 199 mg/dL High 200 - 499 mg/dL Very High > or = 500 mg/dL Laboratory - Chemistry and C hemistry - challengeOrdered By: Dr. An on 04-27-2022 ALP [Catalytic activity/Vol] 84 U/L 45-117 [facility] ALT [Catalytic activity/Vol] 22 U/L 16-61 [facility] CO2 [Moles/Vol] 24.0 mmol/L 21.0-32.0 [facility] Globulin (S) [Mass/Vol] 3.6 g/dL 2.2-4.2 [facility] Urea nitrogen/Creatinine [Mass ratio] 19.0 mg/mg 10-20 [facility] No Panel InformationOrdered By: Dr. An on 04-27-2022 Estimated GFR (MDRD) Amer 76 mL/min >60 [facility] Comment on above: GFR Calc Estimated GFR (MDRD) Non-Af Amer 63 mL/min >60 [facility] Comment on above: Non- GFR Calc Serum or plasma albumin marina urement (mass/volume)Ordered By: Dr. An on 04-27-2022 Albumin [Mass/Vol] 3.5 g/dL 3.2-5.0 [facility] Serum or plasma albumin/glob ulin mass ratioOrdered By: Dr. An on 04-27-2022 Albumin/Globulin [Mass ratio] 1.0 {ratio} 0.9-2.4 [facility] Serum or plasma calcium marina urement (mass/volume)Ordered By: Dr. An on 04-27-2022 Calcium [Mass/Vol] 9.6 mg/dL 8.5-10.1 [facility] Serum or plasma cholesterol in HDL measurement (mass/volume)Ordered By: Dr. An on 04-27-2022 Cholesterol in HDL [Mass/Vol] 51 mg/dL >40 [facility] Comment on above: The drugs N-Acetylcy steine and Metamizole may falsely depress this assay. Reference Range HDL <40 mg/dL Low HDL Cholesterol HDL >or= 60 mg/dL High HDL Cholesterol Serum or plasma cholesterol in VLDL measurement (mass/volume)Ordered By: Dr. An on 04-27-2022 Cholesterol in VLDL [Mass/Vol] 27 mg/dL 5-40 [facility] Serum or plasma creatinine m easurement (mass/volume)Ordered By: Dr. An on 04-27-2022 Creatinine [Mass/Vol] 1.21 mg/dL 0.70-1.30 [facility] Comment on above: The validity of the calculated GFR & GFRAA in patients over 70 years has not been determined. Clinical correlation is essential. Serum or plasma low density lipoprotein (LDL) cholesterol measurement (mass/volume)Ordered By: Dr. An on 04-27-2022 Cholesterol in LDL [Mass/Vol] 98 mg/dL 0-130 [facility] Serum or plasma urea nitroge n measurement (mass/volume)Ordered By: Dr. An on 04-27-2022 Urea nitrogen [Mass/Vol] 23 mg/dL 7-18 [facility] Thin prep Papanicolaou smear with manual screeningOrdered By: Dr. An on 04-27-2022 Thin prep Papanicolaou smear with manual screening 15 U/L 15-37 [facility] Thin prep Papanicolaou smear with manual screening 6 5-15 [facility] Basophil percentageon 2021 Bilirubin [Mass/Vol] 0.70 mg/dL 0.20-1.00 [facility] Work Phone: Comment on above: For patients on eltr ombopag therapy, use of Dimension [place] TBIL is not recommended. Chloride [Moles/Vol] 111 mmol/L 98-107 [facility] Work Phone: Cholesterol [Mass/Vol] 144 mg/dL <200 [facility] Work Phone: Comment on above: <200 mg/dL Desirable 200-240 mg/dL Borderline >240 mg/dL High Risk Glucose [Mass/Vol] 70 mg/dL 74-106 [facility] Work Phone: Potassium [Moles/Vol] 5.1 mmol/L 3.5-5.1 [facility] Work Phone: Protein [Mass/Vol] 7.4 g/dL 6.4-8.2 [facility] Work Phone: Sodium [Moles/Vol] 139 mmol/L 136-145 [facility] Work Phone: Triglyceride [Mass/Vol] 97 mg/dL <199 [facility] Work Phone: Comment on above: The drugs N-Acetylcy steine and Metamizole may falsely depress this assay.Serum Triglycerides Reference Interval Normal <150 mg/dL Borderline high 150 - 199 mg/dL High 200 - 499 mg/dL Very High > or = 500 mg/dL Laboratory - Chemistry and C hemistry - challengeon 10-26-2021 ALP [Catalytic activity/Vol] 82 U/L 45-117 [facility] Work Phone: ALT [Catalytic activity/Vol] 21 U/L 16-61 [facility] Work Phone: CO2 [Moles/Vol] 22.0 mmol/L 21.0-32.0 [facility] Work Phone: Cobalamin (Vitamin B12) [Mass/Vol] 404 pg/mL 211-911 [facility] Work Phone: Globulin (S) [Mass/Vol] 3.8 g/dL 2.2-4.2 [facility] Work Phone: Urea nitrogen/Creatinine [Mass ratio] 18.7 mg/mg 10-20 [facility] Work Phone: No Panel Informationon 10-26 Estimated GFR (MDRD) Amer 67 mL/min >60 [facility] Work Phone: Comment on above: GFR Calc Estimated GFR (MDRD) Non-Af Amer 56 mL/min >60 [facility] Work Phone: Comment on above: Non- GFR Calc Thyroid Stimulating Hormone (TSH) 2.36 uIU/mL 0.358-3.74 [facility] Work Phone: Serum or plasma albumin marina urement (mass/volume)on 10-26-2021 Albumin [Mass/Vol] 3.6 g/dL 3.2-5.0 [facility] Work Phone: Serum or plasma albumin/glob ulin mass ratioon 10-26-2021 Albumin/Globulin [Mass ratio] 0.9 {ratio} 0.9-2.4 [facility] Work Phone: Serum or plasma calcium marina urement (mass/volume)on 10-26-2021 Calcium [Mass/Vol] 9.2 mg/dL 8.5-10.1 [facility] Work Phone: Serum or plasma cholesterol in HDL measurement (mass/volume)on 10-26-2021 Cholesterol in HDL [Mass/Vol] 46 mg/dL >40 [facility] Work Phone: Comment on above: The drugs N-Acetylcy steine and Metamizole may falsely depress this assay. Reference Range HDL <40 mg/dL Low HDL Cholesterol HDL >or= 60 mg/dL High HDL Cholesterol Serum or plasma cholesterol in VLDL measurement (mass/volume)on 10-26-2021 Cholesterol in VLDL [Mass/Vol] 19 mg/dL 5-40 [facility] Work Phone: Serum or plasma creatinine m easurement (mass/volume)on 10-26-2021 Creatinine [Mass/Vol] 1.34 mg/dL 0.70-1.30 [facility] Work Phone: Comment on above: The validity of the calculated GFR & GFRAA in patients over 70 years has not been determined. Clinical correlation is essential. Serum or plasma low density lipoprotein (LDL) cholesterol measurement (mass/volume)on 10-26-2021 Cholesterol in LDL [Mass/Vol] 79 mg/dL 0-130 [facility] Work Phone: Serum or plasma urea nitroge n measurement (mass/volume)on 10-26-2021 Urea nitrogen [Mass/Vol] 25 mg/dL 7-18 [facility] Work Phone: Thin prep Papanicolaou smear with manual screeningon 10-26-2021 Thin prep Papanicolaou smear with manual screening 20 U/L 15-37 [facility] Work Phone: Thin prep Papanicolaou smear with manual screening 6 5-15 [facility] Work Phone: Encounters Encounter Date Encounter Type Care Provider Facility Start: 09-04-2024 End: 09-04-[address] Mohan An MD Work Phone: [facility] Work Phone: Start: 09-04-2024 End: 09-04-[address] Mohan An MD -Laboratory [facility] Start: 09-04-2024 End: 09-04-2024 ambulatory Mohan An Facility:[facility] Start: 02-23-2024 End: 02-23-2024 ambulatory Mohan An Facility:[facility] Start: 02-05-2024 End: 02-05-2024 ambulatory Mohan An Facility:[facility] Start: 11-07-2023 End: 11-07-2023 ambulatory Mohan An Facility:[facility] Start: 08-14-2023 End: 08-14-2023 ambulatory [facility] Work Phone: Start: 08-14-2023 End: 08-14-2023 Patient encounter procedure [facility]-Laboratory, Specimen Work Phone: Start: 08-10-2023 End: 08-10-2023 ambulatory [facility] Work Phone: Start: 08-10-2023 End: 08-10-2023 Patient encounter procedure [facility] Start: 02-21-2023 End: 02-21-2023 ambulatory [facility] Work Phone: Start: 02-21-2023 End: 02-21-2023 Patient encounter procedure [facility] Start: 11-09-2022 End: 11-09-2022 ambulatory [facility] Work Phone: Start: 11-09-2022 End: 11-09-2022 Patient encounter procedure [facility] Start: 04-27-2022 End: 04-27-2022 ambulatory [facility] Work Phone: Start: 04-27-2022 End: 04-27-2022 Patient encounter procedure [facility] Start: 10-26-2021 End: 10-26-2021 Patient encounter procedure [facility] Procedures Date Procedure Procedure Detail Performing Clinician Start: 09-04-[address] Mohan An MD Work Phone: Start: 09-04-2024 Prostate specific an tigen measurement Dr. Mohan An MD Work Phone: Comment on above: This test was perfor med using the [employer] tPSA method. Measured values of a patient sample can vary depending on the testing procedure used. PSA values determined on patient samples by different testing procedures cannot be used interchangeably. If there is a change in PSA assays while monitoring therapy, sequential testing should be performed to confirm baseline values. Start: 09-04-2024 Vitamin D, 25-hydrox y measurement Dr. Mohan An MD Work Phone: Comment on above: Vitamin D StatusDefi ciency: <20 ng/mL (50nmol/L)Insufficiency: 20-30 ng/mL (50-75 nmol/L)Sufficiency: 30-100 ng/mL (75-250 nmol/L)Toxicity: >100 ng/mL (>250 nmol/L) Payers Date Payer Category Payer Self-pay [id number] 2021 Private Health Insurance 101 [id number] Unknown [id number] Unknown [id number] Unknown [id number] Unknown [id number] Social History Date Type Detail Facility [facility] Work Phone: Start: 1950 Sex Assigned At Male [facility] if ever smoked [facility] Work Phone: Evaluation note Note Date & Type Note Facility Evaluation note No assessment information availa ble [facility] Work Phone: Reason for referral (narrative) Note Date & Type Note Facility Reason for referral (narrative) No reason for referral information available [facility] Work Phone: Chief Complaint and Reason for Visit Chief Complaint SEE ORDER Summary Purpose Family History No Family History Records Found Advance Directives No Advanced Directives Records Found Additional Source Comments Goals (unrecognized section and content) Goals may be documented in a n alternate sectionGoals may be documented in an alternate sectionGoals may be documented in an alternate sectionGoals may be documented in an alternate sectionGoals may be documented in an alternate sectionGoals may be documented in an alternate sectionGoals may be documented in an alternate section Care Teams (unrecognized sec tion and content) Team Status: Active Member Role Status Dates Dr. Farhat An MD Family Provider Active Dr. Farhat An MD Primary Care Provider Activ e Team Status: Inactive Member Role Status Dates Dr. Farhat An MD Primary Care Provider, Atte nding Provider Active Team Status: Active Member Role Status Dates Dr. Mohan An MD Family Provider Active Dr. Mohan An MD Primary Care Provider Acti ve Team Status: Inactive Member Role Status Dates Dr. Mohan An MD Primary Care Provider, Att ending Provider Active Team Status: Active Member Role Status Dates Dr. Mohan An MD Primary Care Provider, Attending Provider, Referring Provider Active Team Status: Inactive Member Role Status Dates Dr. Mohan An MD Primary Care Provider, Attending Provider, Referring Provider Active Team Status: Inactive Member Role Status Dates Dr. Mohan An MD Primary Care Provider Acti ve Start: September 04, 2024 End: September 04, 2024 Dr. Mohan An MD Attending Provider Active Start: September 04, 2024 End: September 04, 2024 Dr. Mohan An MD Referring Provider Active Start: September 04, 2024 End: September 04, 2024 (unrecognized sect ion and content) No Status Records Found INFORMATION SOURCE (unrecogn ized section and content) DATE CREATED AUTHOR 09/22/2024 [facility] FOR RECORDS PERTAINING TO PATIENTS WHO ARE OR HAVE BEEN ENROLLED IN A CHEMICAL DEPENDENCY/SUBSTANCEABUSE PROGRAM, SOME INFORMATION MAY BE OMITTED. This clinical summary was aggregated from multiple sources. Caution should be exercised in using it in the provision of clinical care. This summary normalizes information from multiple sources, and as a consequence, information in this document may materially change the coding, format and clinical context of patient data. In addition, data may be omitted in some cases. CLINICAL DECISIONS SHOULD BE BASED ON THE PRIMARY CLINICAL RECORDS. [email or web address] provides no warranty or guarantee of the accuracy or completeness of information in this document.
[2025-03-05 11:04] LABS: AST(SGOT) 18 U/L (<=37); Alanine Aminotransfer ALT/SGPT 11 U/L (<=46); Albumin, Serum 4.1 g/dL (3.4-4.8); Alkaline Phosphatase 94 U/L (40-129); BUN 22 mg/dL (4-19); BUN/Creat Ratio 17.1 RATIO (10-20); Calcium,Total 9.4 mg/dL (7.6-11.0); Carbon Dioxide 23.4 mmol/L (21.0-32.0); Chloride 105 mmol/L (98-108); Cholesterol 145 mg/dL (<=200); Globulin 3.1 g/dL (2.2-4.2); Glucose 108 mg/dL (70-99); Potassium 4.4 mmol/L (3.3-5.1); Triglycerides 83 mg/dL
[2025-03-05 11:05] LABS: Anion Gap 12 (5-15); Low Density Lipoprotein Calc. 74 mg/dL; Very Low Density Lipoprotein 17 mg/dL (5-40); Vitamin B12 345 pg/mL (180-914); Vitamin D,25 Hydroxy 29.9 ng/mL (30-100); cholesterol:hdl ratio screen 2.61
== END 2025-03-05 23:59 | disposition home or self-care (01) ==
LOC: MFPLAB 09:08
PROVIDERS: PCP Family Medicine; Visit Provider Family Medicine
DX: E11.22 Type 2 diabetes mellitus with diabetic chronic kidney disease (principal); E53.8 Deficiency of other specified B group vitamins
CPT/HCPCS: 36415; 80053; 80061; 82306; 82607